=== PATIENT | male | born 1960 | race Caucasian/White ===

== ENCOUNTER 2023-02-14 15:40 | Outpatient (AMB) | payer OTHER, SELFPAY ==
[2023-02-14 16:28] VITALS: BP 160/94; PULSE 74; O2SAT 94; BMI 61.9
--- NOTE | 2023-02-14 16:28 | MHC.PC.OV ---
Vital Signs 02/14/23 16:28 Height 5 ft 10 in Weight 431 lb 8 oz BMI 61.9 BP 160/94 H Blood Pressure Location Lt brachial Position Sitting Pulse 74 Pulse Source Pulse Oximeter Pulse Oximetry (%) 94 Oxygen Delivery Method Room Air Intake Visit Reasons: Annual PE Allergies No Known Allergies Allergy (Verified 02/14/23 16:30) Medication List - Last Reconciled 02/14/23 by EMILI Ceja No Known Home Meds Tobacco use date assessed: 02/14/23 Dental Screening Dental Screen Date: 02/14/23 Did you have a dental visit in the last 12 months?: Yes Did you have a dental problem in the last 6 months where you did not have access to dental care?: No Was dental information given to patient?: Patient has dentist HPI Annual PE HPI Details New pt is here for a PE. Will order labs. Due for colon screen, will refer to GI. Due for PSA, will order. Denies dribbling with urination, weak stream, and incomplete bladder emptying. Pt's blood pressure is elevated. Will start lisinopril 5mg. Denies chest pain, shortness of breath, headache, dizziness, and blurred vision. [facility] Social History Housing: House Patient Tobacco Use Status: Never used Tobacco e-Cigarette/Vaping Use: Never Used Second Hand Smoke Exposure: No service: No Current occupational status: retired and disabled Cognitive needs: No Hearing needs: No Vision needs: No Questionnaire PHQ-9 Over the last 2 weeks, how often have you been bothered by any of the following problems? 1. Little interest or pleasure in doing things: several days 2. Feeling down, depressed, or hopeless: not at all 3. Trouble falling or staying asleep, or sleeping too much: not at all 4. Feeling tired or having little energy: not at all 5. Poor appetite or overeating: not at all 6. Feeling bad about yourself - or that you are a failure or have let yourself or your family down: not at all 7. Trouble concentrating on things, such as reading the newspaper or watching television: not at all 8. Moving or speaking so slowly that other people could have noticed. Or the opposite - being so fidgety or restless that you have been moving around a lot more than usual: not at all 9. Thoughts that you would be better off or of hurting yourself in some way: not at all Total score: 1 Source: Developed by Drs. Jarvis Deleon, Shereen Xie, Mehul Bradley and colleagues, with an educational kim from [employer]. Thrive Questionnaire Date Thrive assessed: 02/14/23 I am a: Patient What is your living situation today?: I have a steady place to live Within the past 12 months, did the food you bought not last and you didn't have the money to get more?: Never true Within the past 12 months, did you worry whether your food would run out before you got money to buy more?: Never true Do you have trouble paying for medicines?: No Do you have trouble getting transportation to medical appointments?: No Do you have trouble paying your heating and electricity bill?: No Do you have trouble taking care of your child, family member or friend?: No Do you have trouble with day-to-day activities such as bathing, preparing meals, shopping, managing finances, etc.?: No Are you currently unemployed and looking for a job?: No Are you interested in more education?: No AUDIT C Alcohol Use Questionnaire (AUDIT-C) 1. How often do you have a drink containing alcohol?: 2-4 times a month 2. How many drinks containing alcohol do you have on a typical day when you are drinking?: 3 or 4 3. How often do you have six or more drinks on one occasion?: Never Total Score: 3 BRITNI-7 AMB Questionnaire BRITNI-7 Date BRITNI - 7 assessed: 02/14/23 Feeling nervous, anxious, or on edge: 0 = Not at all Not being able to stop or control worryin = Not at all Worrying too much about different things: 0 = Not at all Trouble relaxin = Not at all Being so restless that it is hard to sit still: 0 = Not at all Becoming easily annoyed or irritable: 0 = Not at all Feeling afraid as if something awful might happen: 0 = Not at all Total BRITNI-7 score (0-4 normal; 5-9 mild; 10-14 moderate; 15-21 severe): 0 Source: Developed by Shereen Chaidez Kurt Kroenke and colleagues, with an educational kim from [employer]. Review of Systems Const Denies chills and Denies fever(s) Eyes Denies blurry vision ENT Denies vertigo, Denies dizziness and Denies sore throat Card Denies chest pain at rest, Denies chest pain with activity, Denies diaphoresis, Denies dyspnea and Denies dyspnea on exertion Resp Denies cough, Denies dyspnea, Denies dyspnea on exertion and Denies wheezing GI Denies abdominal pain, Denies melena, Denies hematochezia, Denies constipation, Denies diarrhea and Denies loose stools Denies hematuria Musc Denies numbness and Denies tingling Skin/Breast Denies lesions Neuro Denies vertigo, Denies dizziness, Denies numbness and Denies tingling Psych Denies anxiety, Denies depression, Denies homicidal ideation, Denies suicidal ideation and Denies other (substance abuse) Aller/Immun Denies wheezing Physical exam (Primary Care) Vital Signs: Last Vital Signs Pulse 74 02/14/23 16:28 BP 160/94 H 02/14/23 16:28 Pulse Ox 94 02/14/23 16:28 Oxygen Delivery Method Room Air 02/14/23 16:28 BMI result Body Mass Index 61.9 Tobacco/Smoking Status: Tobacco use Status Tobacco use date assessed 02/14/23 02/14/23 16:34 Patient Tobacco Use Status Never used Tobacco 02/14/23 16:34 e-Cigarette/Vaping Use Never Used 02/14/23 16:34 PHQ-9: PHQ-9 Score PHQ-9: Total score 1 02/14/23 17:24 Thrive Assessment: Date of Thrive Assessment Date Thrive assessed 02/14/23 02/14/23 17:24 Const General: cooperative Nutritional Appearance: obese morbidly obese Orientation/consciousness: patient oriented x3 HENMT Head: Yes normal to inspection, Yes normocephalic and Yes atraumatic Ears: TM's normal bilaterally Eyes General: appearance normal, both eyes and all related structures Alignment and Position: alignment normal and position normal Neck Neck: Yes normal visual inspection and Yes no lymphadenopathy Thyroid: Thyroid normal Resp Effort & Inspection: normal respiratory effort Auscultation: clear to auscultation bilaterally Cardio Rate: regular rate Rhythm: regular rhythm Heart sounds: S1 normal heart sound present, S2 normal heart sound present and no murmurs GI Palpation (GI): Soft to palpation and nontender Auscultation: normal bowel sounds Male General Exam: Yes normal external exam Penis: normal penis Scrotum: scrotum normal, testes descended bilaterally and no inguinal hernias Testes: no testicular mass Skin Rashes: no rashes Neuro General: patient oriented x3, moves all extremities, no focal motor deficits and deep tendon reflexes 2+ bilaterally Romberg Test: Negative Extrem Other: brawny edema to BLE, right>left Right lower extremity: edema Details: pitting and 1+ Left lower extremity: edema Details: pitting and 1+ Psych Appearance: grossly normal Mental Status: mental status grossly normal Speech and movement: Normal speech and movement present Affect: normal affect Attitude: cooperative Thought process: Normal thought process present Thought content: Normal thought content present Insight: Good insight present (Psych) Judgement: Good judgement present (Psych) Assessment and Plan Assessment & Plan (1) Physical exam: Code(s): Z00.00 - Encounter for general adult medical examination without abnormal findings Plan: Labs ordered (2) Screening for colon cancer: Code(s): Z12.11 - Encounter for screening for malignant neoplasm of colon (3) Screening for prostate cancer: Code(s): Z12.5 - Encounter for screening for malignant neoplasm of prostate Plan The patient agreed to the use of a medical assistant dermatology for this encounter. Scribed for GINGER Middleton-CARROL by Lidya Arnett medical assistant dermatology, on 02/14/2023 at 16:35 EST. Orders: Orders Comprehensive [place]. Panel Fast Today Z00.00 - Encounter for general adult medical examination without abnormal findings Lipid Panel Today Z00.00 - Encounter for general adult medical examination without abnormal findings TSH reflex Free T4 Today Z00.00 - Encounter for general adult medical examination without abnormal findings Complete Blood Count Auto Diff Today Z00.00 - Encounter for general adult medical examination without abnormal findings UA CC w/rflx Micro + Cult Today Z00.00 - Encounter for general adult medical examination without abnormal findings Prostate Specific Antigen Scr Today Z12.5 - Encounter for screening for malignant neoplasm of prostate Referrals Gastroenterology Referral Z12.11 - Encounter for screening for malignant neoplasm of colon Medications: New lisinopril 5 mg PO DAILY 30 tabs 3RF Coding Level of Care Code New Pt Prev Care 40-64y(56896) Diagnoses Physical exam Z00.00 Screening for colon cancer Z12.11 Screening for prostate cancer Z12.5
== END 2023-02-14 17:24 | disposition home or self-care (01) ==
PROVIDERS: Visit Provider Nurse Practitioner Family
DX: Z00.00 Encounter for general adult medical examination without abnormal findings (principal); Z12.11 Encounter for screening for malignant neoplasm of colon; Z12.5 Encounter for screening for malignant neoplasm of prostate
CPT/HCPCS: 99386

== ENCOUNTER 2023-02-28 09:28 | Outpatient (REF) | payer OTHER, SELFPAY ==
[2023-02-28 11:10] LABS: MANUAL DIFF FLAG NO
[2023-02-28 11:16] LABS: Appearance Urine Clear; Color Urine Yellow; Glucose Urine UA Negative (Negative); Leukocyte Esterase Urine Negative (Negative); Nitrite Urine Negative (Negative); Urine Blood Negative (Negative); Urine Ketones Negative (Negative); Urine Protein Negative (Neg-Trace)
[2023-02-28 11:39] LABS: Basophils Absolute Auto 0.1 X10*3/uL (0.0-0.2); Basophils Percent Auto 0.6 % (0-2); Eosinophils Absolute Auto 0.3 X10*3/uL (0.0-0.4); Eosinophils Percent Auto 3.2 % (0-4); Hematocrit 49.5 % (42.0-52.0); Hemoglobin 15.7 g/dl (14.0-18.0); Imm Gran Abs Auto 0.08 X10*3/uL (0.00-0.03); Imm Gran Pct Auto 0.8 % (0.0-0.4); Lymphocytes Absolute Auto 3.4 X10*3/uL (1.2-4.9); Lymphocytes Percent Auto 36.2 % (20-40); Mean Corpuscular HGB Conc 31.7 g/dl (31.0-36.0); Mean Corpuscular Hemoglobin 30.7 pg (27.0-33.0); Mean Corpuscular Volume 96.9 fL (80.0-98.0); Mean Platelet Volume 10.1 fL (9.4-12.4); Monocytes Absolute Auto 0.7 X10*3/uL (0.1-1.2); Monocytes Percent Auto 7.5 % (2-11); Neutrophils Absolute Auto 4.9 x10*3/uL (2.0-8.3); Neutrophils Percent Auto 51.7 % (45-73); Platelet Count 333 X10*3/uL (160-400); Red Blood Count 5.11 X10*6/uL (4.60-5.80); White Blood Count 9.5 X10*3/uL (4.8-10.8)
[2023-02-28 12:12] LABS: Alanine Aminotransferase 19 U/L (0-40); Albumin Level 3.6 g/dL (3.5-5.0); Alkaline Phosphatase 47 U/L (39-117); Anion Gap 10 (12-20); Aspartate Amino Transferase 17 U/L (5-37); Bilirubin Total 0.5 mg/dL (0.0-1.0); Blood Urea Nitrogen 15 mg/dL (9-16); Calcium 9.3 mg/dL (8.4-10.2); Carbon Dioxide 30 mmol/L (22-29); Chloride 104 mmol/L (96-108); Cholesterol 280 mg/dL; Estimated Glomerular Filt Rate > 60; Glucose Fasting 104 mg/dL (60-99); HDL Cholesterol 34 mg/dL; LDL Cholesterol Calculated 223 mg/dl; Potassium 4.8 mmol/L (3.3-5.1); Sodium 139 mmol/L (135-145); Total Protein 7.8 g/dL (6.5-8.0); Triglycerides 119 mg/dL
[2023-02-28 12:30] LABS: TSH reflex Free T4 1.73 uIU/mL (0.32-4.0)
[2023-02-28 12:33] LABS: Prostate Specific Antigen Scr 0.19 ng/mL (<0.05-4.0)
== END 2023-02-28 09:29 | disposition home or self-care (01) ==
LOC: HO.HMGCLDS 09:28
PROVIDERS: PCP Nurse Practitioner Family; Visit Provider Nurse Practitioner Family
DX: Z00.00 Encounter for general adult medical examination without abnormal findings (principal); E78.5 Hyperlipidemia, unspecified; Z12.5 Encounter for screening for malignant neoplasm of prostate
CPT/HCPCS: 36415; 80053; 80061; 81003; 84153; 84443; 85025

== ENCOUNTER → 2023-04-25 07:49 | Outpatient (BNVA) | payer OTHER, SELFPAY | PROVIDERS: PCP Nurse Practitioner Family; Visit Provider Physician Assistant ==

== ENCOUNTER 2023-08-16 14:52 | Outpatient (AMB) | payer OTHER, SELFPAY ==
--- NOTE | 2023-08-16 14:54 | A.OFFPC_ITS ---
Vital Signs 08/16/23 14:58 Weight 424 lb BP 122/82 Blood Pressure Location Rt brachial Position Sitting Pulse 81 Pulse Source Pulse Oximeter Pulse Oximetry (%) 98 Oxygen Delivery Method Room Air Intake Visit Reasons: 5 month f/u BP Intake Note: Patient here for HTN F/U. Allergies Kdziztd-JOW-ZkA Reductase Inhibitor Adverse Reaction (Intermediate, Verified 08/16/23 15:11) Joint Pain Medication List - Last Reconciled 08/16/23 [facility] ezet[facility] 10 mg PO DAILY lisinopril 5 mg PO DAILY Tobacco use date assessed: 08/16/23 Dental Screening Dental Screen Date: 08/16/23 Did you have a dental visit in the last 12 months?: Yes Did you have a dental problem in the last 6 months where you did not have access to dental care?: No Was dental information given to patient?: Patient has dentist HPI 5 month f/u BP HPI Details HTN: Blood pressure is stable, managed with lisinopril 5mg. Pt reports that his blood pressure at home has been in the 120s/80s. Denies chest pain, shortness of breath, headache, dizziness, and blurred vision. Dyslipidemia: Pt is currently taking zetia 10mg every other day. Will continue this. Pt reports a dry macular lesion to his left upper forehead. Will refer to derm. ENCOURAGED PT TO GET LABS DRAWN. [facility] Medical History Knee arthropathy Social History Housing: House Patient Tobacco Use Status: Never used Tobacco e-Cigarette/Vaping Use: Never Used Second Hand Smoke Exposure: No service: No Current occupational status: retired and disabled Cognitive needs: No Hearing needs: No Vision needs: No Questionnaire Thrive Questionnaire Date Thrive assessed: 02/14/23 BRITNI-7 AMB Questionnaire BRITNI-7 Date BRITNI - 7 assessed: 02/14/23 Source: Developed by Drs. Jarvis Deleon, Shereen Xie, Mehul Bradley and colleagues, with an educational kim from [employer]. Review of Systems Const Reports as per HPI Physical exam (Primary Care) Vital Signs: Last Vital Signs Pulse 81 08/16/23 14:58 BP 122/82 08/16/23 14:58 Pulse Ox 98 08/16/23 14:58 Oxygen Delivery Method Room Air 08/16/23 14:58 Tobacco/Smoking Status: Tobacco use Status Tobacco use date assessed 08/16/23 08/16/23 15:02 Patient Tobacco Use Status Never used Tobacco 08/16/23 14:54 e-Cigarette/Vaping Use Never Used 08/16/23 14:54 Thrive Assessment: Date of Thrive Assessment Date Thrive assessed 02/14/23 08/16/23 14:54 Const General: cooperative Nutritional Appearance: obese morbidly obese Orientation/consciousness: patient oriented x3 Resp Effort & Inspection: normal respiratory effort Auscultation: clear to auscultation bilaterally Cardio Rate: regular rate Rhythm: regular rhythm Heart sounds: S1 normal heart sound present and S2 normal heart sound present Skin Other: dry more macular lesion noted to upper left forehead Neuro General: patient oriented x3 Psych Appearance: grossly normal Mental Status: mental status grossly normal Speech and movement: Normal speech and movement present Affect: normal affect Attitude: cooperative Thought process: Normal thought process present Thought content: Normal thought content present Insight: Good insight present (Psych) Judgement: Good judgement present (Psych) Assessment and Plan Assessment & Plan (1) Dyslipidemia: Code(s): E78.5 - Hyperlipidemia, unspecified Plan: cont ezetimibe every other day (2) HTN (hypertension): Code(s): I10 - Essential (primary) hypertension Plan: Continue lisinopril, labs (3) Facial lesion: Code(s): L98.9 - Disorder of the skin and subcutaneous tissue, unspecified Plan: Referred to derm Plan The patient agreed to the use of a medical transcriptionist for this encounter. Scribed for MIGUEL Middleton by Lidya Arnett medical transcriptionist, on 08/16/2023 at 15:10 EST. Orders: Referrals Dermatology Referral L98.9 - Disorder of the skin and subcutaneous tissue, unspecified Coding Level of Care Code Est Pt Level 3 (22151) Diagnoses Dyslipidemia E78.5 HTN (hypertension) I10 Facial lesion L98.9
[2023-08-16 14:58] VITALS: BP 122/82; PULSE 81; O2SAT 98
== END 2023-08-16 15:23 | disposition home or self-care (01) ==
PROVIDERS: PCP Nurse Practitioner Family; Visit Provider Nurse Practitioner Family
DX: E78.5 Hyperlipidemia, unspecified (principal); I10 Essential (primary) hypertension; L98.9 Disorder of the skin and subcutaneous tissue, unspecified
CPT/HCPCS: 99213

== ENCOUNTER 2023-08-31 09:37 | Outpatient (REF) | payer OTHER, SELFPAY ==
[2023-08-31 12:37] LABS: Alanine Aminotransferase 19 U/L (0-40); Albumin Level 3.7 g/dL (3.5-5.0); Alkaline Phosphatase 42 U/L (39-117); Anion Gap 14 (12-20); Aspartate Amino Transferase 16 U/L (5-37); Bilirubin Total 0.7 mg/dL (0.0-1.0); Blood Urea Nitrogen 17 mg/dL (9-16); Calcium 9.6 mg/dL (8.4-10.2); Carbon Dioxide 27 mmol/L (22-29); Chloride 102 mmol/L (96-108); Cholesterol 257 mg/dL (<200); Estimated Glomerular Filt Rate > 60; Glucose Fasting 106 mg/dL (60-99); HDL Cholesterol 37 mg/dL (>40); LDL Cholesterol Calculated 191 mg/dL (<100); Potassium 4.4 mmol/L (3.3-5.1); Sodium 139 mmol/L (135-145); Triglycerides 148 mg/dL (<150)
== END 2023-08-31 09:38 | disposition home or self-care (01) ==
LOC: HO.HMGCLDS 09:37
PROVIDERS: PCP Nurse Practitioner Family; Visit Provider Nurse Practitioner Family
DX: E78.5 Hyperlipidemia, unspecified (principal)
CPT/HCPCS: 36415; 80053; 80061

== ENCOUNTER 2023-11-21 06:38 | Outpatient (REF) | payer OTHER, SELFPAY ==
--- NOTE | ~2023-11-21 | XR_ITS ---
EXAMINATION: XR KNEE, RIGHT CLINICAL INFORMATION: Pain in right knee. COMPARISON: None available. TECHNIQUE: Three views of the right knee. FINDINGS: Marked narrowing of the medial compartment with medial marginal osteophytes. Small joint effusion. Please note that technologist placed a radiopaque arrow marker over superior patellar region, obscuring some visualization, and this lateral view should be repeated at no charge to the patient. When the patient returns for an additional view, an addendum will be dictated. Degenerative changes with hypertrophic change of the patellofemoral joint. XR/XR knee RT 3V IMPRESSION: 1. Marked degenerative changes medial compartment. 2. Small joint effusion. 3. Please note the technologist placed a radiopaque arrow marker over superior patellar region, obscuring some visualization, and this lateral view should be repeated at no charge to the patient. When the patient returns for an additional view, an addendum will be dictated.
== END 2023-11-21 06:39 | disposition home or self-care (01) ==
LOC: HO.HOSX 06:38
PROVIDERS: Visit Provider Orthopaedic Surgery
DX: M17.11 Unilateral primary osteoarthritis, right knee (principal)
CPT/HCPCS: 73562; 99212

== ENCOUNTER 2023-11-21 09:00 | Outpatient (AMB) | payer OTHER, SELFPAY ==
[2023-11-21 09:05] VITALS: BMI 60.8
--- NOTE | 2023-11-21 09:05 | MHC.OFFVIS ---
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 Madera for Right knee pain. The patient did undergo left knee arthroscopic surgery approximately 5 years ago. He reports minimal discomfort in his left knee. He describes his right knee pain as sharp in nature. Most of the pain is along the medial aspect of his knee. He has had cortisone injections in the past which gave him minimal relief. He has not had a viscosupplementation injection. Has taken Tylenol and ibuprofen which gave him minimal relief. He has also done physical therapy exercises which aggravated his pain. Allergies Nydvpan-XYO-KvE Reductase Inhibitor Adverse Reaction (Intermediate, Verified 11/21/23 09:18) Joint Pain Medication List - Last Reconciled 11/21/23 by Kole Madera MD ezetimibe 10 mg PO DAILY fluvastatin 20 mg PO QPM lisinopril 5 mg PO DAILY ON LICENSE OF [facility] Medical History Knee arthropathy Social History Housing: House Patient Tobacco Use Status: Never used Tobacco e-Cigarette/Vaping Use: Never Used Second Hand Smoke Exposure: No service: No Current occupational status: retired and disabled Cognitive needs: No Hearing needs: No Vision needs: No Physical Exam Vital Signs: BMI result Body Mass Index 60.8 Const Other: Well-nourished well-developed very friendly male awake alert and oriented x3 in no acute distress Extrem Other: Bilateral lower extremity examination shows good capillary refill, no skin lesions noted, normal sensation light touch Right knee examination shows a minimal effusion, mild crepitus with range of motion, tenderness along his medial joint line, positive Franci's test, no instability Assessment & Plan Assessment & Plan (1) Osteoarthritis of right knee: Code(s): M17.11 - Unilateral primary osteoarthritis, right knee Plan Mr. Saucedo presents with right knee pain and mechanical symptoms due to osteoarthritis as well as possible tearing of his medial meniscus. I had a lengthy discussion with the patient regarding the treatment options. The patient wishes to hold off on surgery for as long as possible. I agree with this plan. He has not gotten good relief from cortisone injections in the past. Thus, I will see whether or not his insurance company will cover a viscosupplementation injection. I will see him back once the injection is available. He will contact me prior to that time should any questions or concerns arise. Feel free to call me at any time should questions regarding his orthopedic management arise. I spent 22 minutes in reviewing the patient's records and imaging studies, seeing the patient and documenting in the medical record. Orders: Orders XR knee RT 3V Today M25.561 - Pain in right knee Coding Level of Care Code Est Pt Level 2 (05404) Diagnoses Osteoarthritis of right knee M17.11
== END 2023-11-21 09:37 | disposition home or self-care (01) ==
PROVIDERS: PCP Nurse Practitioner Family; Visit Provider Orthopaedic Surgery
DX: M17.11 Unilateral primary osteoarthritis, right knee (principal)
CPT/HCPCS: 99213

== ENCOUNTER 2023-12-13 08:24 | Outpatient (AMB) | payer OTHER, SELFPAY ==
[2023-12-13 08:31] VITALS: BMI 60.8
--- NOTE | 2023-12-13 08:31 | A.OFFVIS_ITS ---
Vital Signs 12/13/23 08:31 Height 5 ft 10 in Weight 424 lb BMI 60.8 Intake Visit Reasons: OV- Right knee durolane gel injection Intake Note: Mr. Saucedo presents with progressively worsening right knee pain. He describes his pain as sharp in nature. His pain has gotten worse over the last 6 months in spite of continued non operative treatments. He has had cortisone injections in the past which gave him minimal relief. He wishes to hold off on surgery for as long as possible. He has tried Tylenol and anti-inflammatory medicines which gave him minimal relief. He has also done physical therapy exercises which aggravated his pain. Allergies Yiyejcv-HOW-AiY Reductase Inhibitor Adverse Reaction (Intermediate, Verified 0 12/13/23 08:36) Joint Pain Medication List - Last Reconciled 12/14/23 by Kole Madera MD ezetimibe 10 mg PO DAILY fluvastatin 20 mg PO QPM lisinopril 5 mg PO DAILY PFSH Medical History Knee arthropathy Social History Housing: House Patient Tobacco Use Status: Never used Tobacco e-Cigarette/Vaping Use: Never Used Second Hand Smoke Exposure: No service: No Current occupational status: retired and disabled Cognitive needs: No Hearing needs: No Vision needs: No Physical Exam Vital Signs: BMI result Body Mass Index 60.8 Const Other: Well-nourished well-developed very friendly female awake alert and oriented x3 in no acute distress Extrem Other: Bilateral lower extremity examination shows good capillary refill, no skin lesions noted, normal sensation light touch Right knee examination shows a minimal effusion, palpable crepitus with range of motion, pain with range of motion, no instability Office Procedures Joint Injection/Drain Joint Injection/Drain Primary Site: right knee Prep: site was prepped using aseptic technique Injected: 60 mg of (Durolane viscosupplementation) and 1% plain lidocaine Procedure: The patient tolerated the procedure well Coding 16140 - Large joint Procedure code (CPT) selection complete Results Reviewed Results Reviewed: X-rays of the patient's right knee show joint space narrowing, subchondral sclerosis, no acute bony abnormalities Assessment & Plan Assessment & Plan (1) Osteoarthritis of right knee: Code(s): M17.11 - Unilateral primary osteoarthritis, right knee Category: Medical Plan Mr. Saucedo presents with right knee pain due to degenerative joint disease. I had a lengthy discussion with the patient regarding the treatment options. He wishes to hold off on surgery for as long as possible. I agree with this plan. The risks and benefits of a Durolane viscosupplementation injection were discussed at length with the patient. The patient wished to proceed. He to lerated the injection well. Will continue with his home exercise program. He will follow up with me on an as-needed basis should his symptoms not plateau at an unacceptable level over the next few months. Feel free to call me at any time should questions regarding his orthopedic management arise. I spent 20 minutes in reviewing the patient's records and imaging studies, seeing the patient and documenting in the medical record. Orders: Orders AMB Joint Injection/Aspiration 12/13/23 M17.11 - Unilateral primary osteoarthritis, right knee Coding Level of Care Code Est Pt Level 3 (81532) Diagnoses Osteoarthritis of right knee M17.11 CPT Codes Coding - 49711 Large joint: 75770 - Large joint ([id number])
== END 2023-12-13 08:55 | disposition home or self-care (01) ==
PROVIDERS: PCP Nurse Practitioner Family; Visit Provider Orthopaedic Surgery
DX: M17.11 Unilateral primary osteoarthritis, right knee (principal)
CPT/HCPCS: 20610; 99213

== ENCOUNTER → 2023-12-13 08:24 | Outpatient (BNVA) | payer OTHER, SELFPAY | PROVIDERS: PCP Nurse Practitioner Family; Visit Provider Orthopaedic Surgery | DX: M17.11 Unilateral primary osteoarthritis, right knee (principal) | CPT/HCPCS: 20610; 99212; J7318 ==

== ENCOUNTER 2024-02-14 09:15 | Outpatient (REF) | payer OTHER, SELFPAY ==
[2024-02-14 14:05] LABS: Alanine Aminotransferase 21 U/L (0-40); Albumin Level 3.7 g/dL (3.5-5.0); Alkaline Phosphatase 41 U/L (39-117); Anion Gap 13 (12-20); Aspartate Amino Transferase 20 U/L (5-37); Bilirubin Total 0.6 mg/dL (0.0-1.0); Blood Urea Nitrogen 20 mg/dL (9-16); Carbon Dioxide 28 mmol/L (22-29); Chloride 103 mmol/L (96-108); Cholesterol 258 mg/dL (<200); Estimated Glomerular Filt Rate > 60; Glucose Fasting 111 mg/dL (60-99); HDL Cholesterol 34 mg/dL (>40); LDL Cholesterol Calculated 199 mg/dL (<100); Potassium 4.8 mmol/L (3.3-5.1); Sodium 139 mmol/L (135-145); Total Protein 7.7 g/dL (6.5-8.0); Triglycerides 125 mg/dL (<150)
== END 2024-02-14 09:16 | disposition home or self-care (01) ==
LOC: HO.HMGCLDS 09:15
PROVIDERS: PCP Nurse Practitioner Family; Visit Provider Nurse Practitioner Family
DX: E78.5 Hyperlipidemia, unspecified (principal)
CPT/HCPCS: 36415; 80053; 80061

== ENCOUNTER 2024-02-18 13:49 | Outpatient (AMB) | payer OTHER, SELFPAY ==
--- NOTE | 2024-02-18 13:57 | MHC.PC.OV ---
Vital Signs 02/18/24 14:00 Height 5 ft 10 in Weight 432 lb BMI 62.0 BP 110/80 Blood Pressure Location Lt brachial Position Sitting Pulse 74 Pulse Source Pulse Oximeter Pulse Oximetry (%) 94 Oxygen Delivery Method Room Air Intake Visit Reasons: Annual PE Intake Note: Patient here for physical exam. Colon: has not had one done yet. Allergies Yorfuqm-ANN-FtB Reductase Inhibitor Adverse Reaction (Intermediate, Verified 02/18/24 14:12) Joint Pain Medication List - Last Reconciled 02/18/24 by MIGUEL Ceja fluvastatin 20 mg PO QPM lisinopril 5 mg PO DAILY Tobacco use date assessed: 08/16/23 Dental Screening Dental Screen Date: 08/16/23 HPI Annual PE HPI Details here for a PE. Colon screen scheduled for June. Denies any urinary frequency, urgency, or nocturia. Mobidly obese: had a sleep study previously, refuses cpap. Pt was in the obesity clinic, does not want to go back. [facility] Medical History HTN (hypertension) Knee arthropathy Social History Housing: House Patient Tobacco Use Status: Never used Tobacco e-Cigarette/Vaping Use: Never Used Second Hand Smoke Exposure: No service: No Current occupational status: retired and disabled Cognitive needs: No Hearing needs: No Vision needs: No Questionnaire PHQ-9 Over the last 2 weeks, how often have you been bothered by any of the following problems? 1. Little interest or pleasure in doing things: more than half the days 2. Feeling down, depressed, or hopeless: not at all 3. Trouble falling or staying asleep, or sleeping too much: not at all 4. Feeling tired or having little energy: not at all 5. Poor appetite or overeating: not at all 6. Feeling bad about yourself - or that you are a failure or have let yourself or your family down: not at all 7. Trouble concentrating on things, such as reading the newspaper or watching television: not at all 8. Moving or speaking so slowly that other people could have noticed. Or the opposite - being so fidgety or restless that you have been moving around a lot more than usual: not at all 9. Thoughts that you would be better off or of hurting yourself in some way: not at all Total score: 2 Depression Screening Interpretation: Negative Depression Screening Done: Yes 55926 - PHQ-9 Billing: Yes Source: Developed by Drs. Jarvis Deleon, Shereen Xie, Mehul Bradley and colleagues, with an educational kim from [email or web address]. Thrive Questionnaire Date Thrive assessed: 02/18/24 I am a: Parent/Caregiver What is your living situation today?: I have a steady place to live Within the past 12 months, did the food you bought not last and you didn't have the money to get more?: Never true Within the past 12 months, did you worry whether your food would run out before you got money to buy more?: Never true Do you have trouble paying for medicines?: No Do you have trouble getting transportation to medical appointments?: No Do you have trouble paying your heating and electricity bill?: No Do you have trouble taking care of your child, family member or friend?: No Do you have trouble with day-to-day activities such as bathing, preparing meals, shopping, managing finances, etc.?: No Are you currently unemployed and looking for a job?: No Are you interested in more education?: No Please select the resources that you would like help with: Housing/Long-Term Currently or been in a relationship where the following occur: I choose not to answer THRIVE Score: 0 AUDIT C Alcohol Use Questionnaire (AUDIT-C) 1. How often do you have a drink containing alcohol?: Monthly or less 2. How many drinks containing alcohol do you have on a typical day when you are drinking?: 3 or 4 3. How often do you have six or more drinks on one occasion?: Never Total Score: 2 BRITNI-7 AMB Questionnaire BRITNI-7 Date BRITNI - 7 assessed: 02/18/24 Source: Developed by Drs. Jarvis Deleon, Shereen Xie, Mehul Bradley and colleagues, with an educational kim from [email or web address]. BRITNI-7 Assessment Billing BRITNI-7 Assessment Tool: pt declined-do not bill Review of Systems Const Denies chills and Denies fever(s) Eyes Denies blurry vision ENT Denies vertigo, Denies dizziness and Denies sore throat Card Denies chest pain at rest, Denies chest pain with activity, Denies diaphoresis, Denies dyspnea and Denies dyspnea on exertion Resp Denies cough, Denies dyspnea, Denies dyspnea on exertion and Denies wheezing GI Denies abdominal pain, Denies melena, Denies hematochezia, Denies constipation, Denies diarrhea and Denies loose stools Denies hematuria Musc Denies numbness and Denies tingling Skin/Breast Denies lesions Neuro Denies vertigo, Denies dizziness, Denies numbness and Denies tingling Psych Denies anxiety, Denies depression, Denies homicidal ideation, Denies suicidal ideation and Denies other (substance abuse) Aller/Immun Denies wheezing Physical exam (Primary Care) Vital Signs: Last Vital Signs Pulse 74 02/18/24 14:00 BP 110/80 02/18/24 14:00 Pulse Ox 94 02/18/24 14:00 Oxygen Delivery Method Room Air 02/18/24 14:00 BMI result Body Mass Index 62.0 Tobacco/Smoking Status: Tobacco use Status Tobacco use date assessed 08/16/23 02/18/24 13:59 Patient Tobacco Use Status Never used Tobacco 02/18/24 13:59 e-Cigarette/Vaping Use Never Used 02/18/24 13:59 PHQ-9: PHQ-9 Score PHQ-9: Total score 2 02/18/24 13:59 Depression Screening Interpretation: Negative Thrive Assessment: Date of Thrive Assessment Date Thrive assessed 02/18/24 02/18/24 13:59 Currently or been in a relationship where the following occur: I choose not to answer Const General: cooperative Nutritional Appearance: well nourished and obese morbidly obese Orientation/consciousness: patient oriented x3 HENMT Head: Yes normal to inspection, Yes normocephalic and Yes atraumatic Ears: TM normal on the right and TM normal on the left Eyes General: appearance normal, both eyes and all related structures Alignment and Position: alignment normal and position normal Neck Neck: Yes normal visual inspection and Yes no lymphadenopathy Resp Effort & Inspection: normal respiratory effort Auscultation: clear to auscultation bilaterally Cardio Rate: regular rate Rhythm: regular rhythm Heart sounds: S1 normal heart sound present, S2 normal heart sound present and no murmurs GI Palpation (GI): Soft to palpation and nontender Auscultation: normal bowel sounds Male General Exam: Yes normal external exam Penis: normal penis Scrotum: scrotum normal, testes descended bilaterally and no inguinal hernias Testes: no testicular mass Skin Other: skin discoloration to BLE, brawny edema noted to BLE (+1). Several skin tags to neck. faint macular erythema under pannus. Rashes: no rashes Neuro General: patient oriented x3, moves all extremities, no focal motor deficits and deep tendon reflexes 2+ bilaterally Romberg Test: Negative Extrem Right lower extremity: no edema Left lower extremity: no edema Psych Affect: normal affect Attitude: cooperative Thought process: Normal thought process present Assessment and Plan Assessment & Plan (1) Encounter for routine adult physical exam with abnormal findings: Code(s): Z00. - Encounter for general adult medical examination with abnormal findings (2) Screening for prostate cancer: Code(s): Z12.5 - Encounter for screening for malignant neoplasm of prostate (3) Obesity: Code(s): E66.9 - Obesity, unspecified (4) Dyslipidemia: Code(s): E78.5 - Hyperlipidemia, unspecified Plan: increasing statin Orders: Orders Complete Blood Count Auto Diff Today Z00. - Encounter for general adult medical examination with abnormal findings Comprehensive [place]. Panel Fast Today Z00. - Encounter for general adult medical examination with abnormal findings TSH reflex Free T4 Today Z00.01 - Encounter for general adult medical examination with abnormal findings UA CC w/rflx Micro + Cult Today Z00.01 - Encounter for general adult medical examination with abnormal findings Lipid Panel Today Z00.01 - Encounter for general adult medical examination with abnormal findings Prostate Specific Antigen Scr Today Z12.5 - Encounter for screening for malignant neoplasm of prostate Medications: Changed From fluvastatin 20 mg PO QPM 90 caps 0RF To fluvastatin 40 mg PO QPM 90 caps 0RF Coding Level of Care Code Est Pt Prev Care 40-64y(74617) Diagnoses Encounter for routine adult physical exam with abnormal findings Z00. Screening for prostate cancer Z12.5 Obesity E66.9 Dyslipidemia E78.5
[2024-02-18 14:00] VITALS: BP 110/80; PULSE 74; O2SAT 94; BMI 62.0
== END 2024-02-18 14:26 | disposition home or self-care (01) ==
PROVIDERS: PCP Nurse Practitioner Family; Visit Provider Nurse Practitioner Family
DX: Z00.00 Encounter for general adult medical examination without abnormal findings (principal); Z12.5 Encounter for screening for malignant neoplasm of prostate; E66.9 Obesity, unspecified; Z68.44 Body mass index [BMI] 60.0-69.9, adult; E78.5 Hyperlipidemia, unspecified
CPT/HCPCS: 99396

== ENCOUNTER 2024-03-18 08:29 | Outpatient (AMB) | payer OTHER, SELFPAY ==
--- NOTE | 2024-03-18 08:38 | MHC.OFFVIS ---
Vital Signs 03/18/24 08:40 Height 5 ft 10 in Weight 432 lb BMI 62.0 Intake Visit Reasons: OV-Right knee follow up Intake Note: Andrea is a 63 year old male who presents with complaints of progressively worsening right knee pain and giving way. The patient did undergo left knee arthroscopic surgery several years ago. He reports minimal discomfort in his left knee. He describes his right knee pain as sharp in nature. Most of the pain is along the medial aspect of his knee. His right knee pain has gotten worse over the last year in spite of continued non operative treatments. He has failed the last 3 months of conservative treatment. He has had cortisone injections which lasted 2 days. He also had a viscosupplementation injection which lasted 2 weeks. Has tried Tylenol and anti-inflammatory medicines which gave him minimal relief. He states that his right knee will give out several times per day. Allergies Fytevbr-DZZ-FlF Reductase Inhibitor Adverse Reaction (Intermediate, Verified 03/18/24 08:42) Joint Pain PFSH Medical History HTN (hypertension) Knee arthropathy Social History Housing: House Patient Tobacco Use Status: Never used Tobacco e-Cigarette/Vaping Use: Never Used Second Hand Smoke Exposure: No service: No Current occupational status: retired and disabled Cognitive needs: No Hearing needs: No Vision needs: No Physical Exam Vital Signs: BMI result Body Mass Index 62.0 Const Other: Well-nourished well-developed very friendly male awake alert and oriented x3 in no acute distress Extrem Other: Bilateral lower extremity examination shows good capillary refill, no skin lesions noted, normal sensation light touch Right knee examination shows a minimal effusion, minimal crepitus with range of motion, tenderness along his medial joint line, positive Franci's test, no instability Results Reviewed Results Reviewed: X-rays of the patient's right knee show mild joint space narrowing, no acute bony abnormalities Assessment & Plan Assessment & Plan (1) Right knee pain: Code(s): M25.561 - Pain in right knee Category: Medical Plan Mr. Saucedo presents with right knee pain and mechanical symptoms most likely due to a tear of his medial meniscus. Thus, I will send the patient for an MRI of his right knee for further evaluation. I will see him back once the MRI is completed to discuss the findings and treatment options. Feel free to call me any time should questions regarding his orthopedic management arise. I spent 22 minutes in reviewing the patient's records and imaging studies, seeing the patient and documenting in the medical record. Orders: Orders MR knee RT wo con Today M25.561 - Pain in right knee Coding Level of Care Code Est Pt Level 3 (89768) Diagnoses Right knee pain M25.561
[2024-03-18 08:40] VITALS: BMI 62.0
== END 2024-03-18 08:55 | disposition home or self-care (01) ==
PROVIDERS: PCP Nurse Practitioner Family; Visit Provider Orthopaedic Surgery
DX: M25.561 Pain in right knee (principal)
CPT/HCPCS: 99213

== ENCOUNTER → 2024-03-18 08:29 | Outpatient (BNVA) | payer OTHER, SELFPAY | PROVIDERS: PCP Nurse Practitioner Family; Visit Provider Orthopaedic Surgery | DX: M25.561 Pain in right knee (principal) | CPT/HCPCS: 99212 ==

== ENCOUNTER 2024-05-13 07:34 | Outpatient (AMB) | payer OTHER, SELFPAY ==
--- NOTE | 2024-05-13 07:35 | MHC.OFFVIS ---
Intake Visit Reasons: Right knee pain and giving way Intake Note: Andrea is a 63 year old male who presents with complaints of progressively worsening right knee pain and giving way. The patient did undergo left knee arthroscopic surgery several years ago. He reports minimal discomfort in his left knee. He describes his right knee pain as sharp in nature. Most of the pain is along the medial aspect of his knee. His right knee pain has gotten worse over the last year in spite of continued non operative treatments. He has failed the last 3 months of conservative treatment. He has had cortisone injections which lasted 2 days. He also had a viscosupplementation injection which lasted 2 weeks. Has tried Tylenol and anti-inflammatory medicines which gave him minimal relief. He states that his right knee will give out several times per day. Allergies Puiwaqn-HZI-JbJ Reductase Inhibitor Adverse Reaction (Intermediate, Verified 05/13/24 07:38) Joint Pain Medication List - Last Reconciled 05/13/24 by Kole Madera MD fluvastatin 40 mg PO QPM lisinopril 5 mg PO DAILY PFSH Medical History HTN (hypertension) Knee arthropathy Social History Housing: House Patient Tobacco Use Status: Never used Tobacco e-Cigarette/Vaping Use: Never Used Second Hand Smoke Exposure: No service: No Current occupational status: retired and disabled Cognitive needs: No Hearing needs: No Vision needs: No Physical Exam Const Other: Well-nourished well-developed very friendly male awake alert and oriented x3 in no acute distress Extrem Other: Bilateral lower extremity examination shows good capillary refill, no skin lesions noted, normal sensation light touch Right knee examination shows a minimal effusion, mild crepitus with range of motion, tenderness along his medial joint line, positive Franci's test, no instability Results Reviewed Results Reviewed: Standing full weight-bearing x-rays of the patient's right knee show mild to moderate diffuse joint space narrowing, no acute bony abnormalities MRI of the patient's right knee shows mild to moderate degenerative changes most significant in the medial compartment as well as a tear of the posterior horn of the medial meniscus Assessment & Plan Assessment & Plan (1) Tear of medial meniscus of right knee: Code(s): S83.241A - Other tear of medial meniscus, current injury, right knee, initial encounter Category: Medical Plan Mr. Saucedo presents with progressively worsening right knee pain and mechanical symptoms due to early degenerative joint disease as well as a tear of his medial meniscus. I had a lengthy discussion with the patient regarding the treatment options. At this point he has failed continued non operative treatments. The risks and benefits of right knee arthroscopic surgery were discussed at length with the patient. The patient wishes to proceed with surgery. Surgery will most likely involve right knee diagnostic arthroscopy with arthroscopic partial medial meniscectomy. The patient does understand that he may not get 100% relief of his symptoms depending on the severity of his degenerative changes. I do feel that he will get significant relief because of his mechanical symptoms. The patient also did well following left knee arthroscopic surgery in the past. The patient will be scheduled for next available date. He will follow-up as instructed. Feel free to call me at any time should questions regarding his orthopedic management arise. I spent 20 minutes in reviewing the patient's records and imaging studies, seeing the patient and documenting in the medical record. Coding Level of Care Code Est Pt Level 3 (00774) Complex EM visit Add On G2211 Diagnoses Tear of medial meniscus of right knee S83.128A
== END 2024-05-13 07:54 | disposition home or self-care (01) ==
PROVIDERS: PCP Nurse Practitioner Family; Visit Provider Orthopaedic Surgery
DX: S83.241A Other tear of medial meniscus, current injury, right knee, initial encounter (principal)
CPT/HCPCS: 99213; G2211

== ENCOUNTER → 2024-05-13 07:34 | Outpatient (BNVA) | payer OTHER, SELFPAY | PROVIDERS: PCP Nurse Practitioner Family; Visit Provider Orthopaedic Surgery | DX: S83.241D Other tear of medial meniscus, current injury, right knee, subsequent encounter (principal) | CPT/HCPCS: 99212 ==

== ENCOUNTER 2024-05-20 08:43 | Outpatient (REF) | payer OTHER, SELFPAY ==
[2024-05-20 09:56] LABS: MANUAL DIFF FLAG NO
[2024-05-20 09:58] LABS: Appearance Urine Clear; Color Urine Dark Yellow; Glucose Urine UA Negative (Negative); Leukocyte Esterase Urine Negative (Negative); Nitrite Urine Negative (Negative); PH 5.5 (5.0-9.0); Specific Gravity - Urine 1.025 (1.005-1.025); Urine Blood Negative (Negative); Urine Ketones Negative (Negative); Urine Protein Negative (Neg-Trace)
[2024-05-20 10:06] LABS: Basophils Absolute Auto 0.1 X10*3/uL (0.0-0.2); Basophils Percent Auto 0.8 % (0-2); Eosinophils Absolute Auto 0.3 X10*3/uL (0.0-0.4); Eosinophils Percent Auto 2.9 % (0-4); Hematocrit 48.8 % (42.0-52.0); Hemoglobin 15.6 g/dl (14.0-18.0); Imm Gran Abs Auto 0.08 X10*3/uL (0.00-0.03); Imm Gran Pct Auto 0.8 % (0.0-0.4); Lymphocytes Absolute Auto 3.1 X10*3/uL (1.2-4.9); Lymphocytes Percent Auto 31.1 % (20-40); Mean Corpuscular Hemoglobin 30.8 pg (27.0-33.0); Mean Corpuscular Volume 96.4 fL (80.0-98.0); Mean Platelet Volume 10.1 fL (9.4-12.4); Monocytes Absolute Auto 0.7 X10*3/uL (0.1-1.2); Neutrophils Absolute Auto 5.7 x10*3/uL (2.0-8.3); Neutrophils Percent Auto 57.4 % (45-73); Platelet Count 286 X10*3/uL (160-400); Red Blood Count 5.06 X10*6/uL (4.60-5.80); Red Cell Distribution Width 13.2 % (11.0-16.0)
[2024-05-20 10:41] LABS: Alanine Aminotransferase 16 U/L (0-40); Albumin Level 3.8 g/dL (3.5-5.0); Alkaline Phosphatase 45 U/L (39-117); Anion Gap 14 (12-20); Aspartate Amino Transferase 16 U/L (5-37); Bilirubin Total 0.5 mg/dL (0.0-1.0); Blood Urea Nitrogen 18 mg/dL (9-16); Calcium 9.6 mg/dL (8.4-10.2); Carbon Dioxide 28 mmol/L (22-29); Chloride 103 mmol/L (96-108); Cholesterol 263 mg/dL (<200); Estimated Glomerular Filt Rate > 60; Glucose Fasting 136 mg/dL (60-99); HDL Cholesterol 40 mg/dL (>40); LDL Cholesterol Calculated 200 mg/dL (<100); Potassium 4.9 mmol/L (3.3-5.1); Prostate Specific Antigen Scr 0.12 ng/mL (<0.05-4.0); Sodium 140 mmol/L (135-145); Total Protein 7.9 g/dL (6.5-8.0); Triglycerides 115 mg/dL (<150)
[2024-05-20 10:43] LABS: TSH reflex Free T4 1.84 uIU/mL (0.32-4.0)
== END 2024-05-20 08:44 | disposition home or self-care (01) ==
LOC: HO.HMGCLDS 08:43
PROVIDERS: PCP Nurse Practitioner Family; Visit Provider Nurse Practitioner Family
DX: Z00.01 Encounter for general adult medical examination with abnormal findings (principal); Z12.5 Encounter for screening for malignant neoplasm of prostate
CPT/HCPCS: 36415; 80053; 80061; 81003; 84153; 84443; 85025

== ENCOUNTER → 2024-05-20 09:31 | Outpatient (BNV) | payer OTHER, SELFPAY | PROVIDERS: PCP Nurse Practitioner Family; Visit Provider Internal Medicine | DX: I10 Essential (primary) hypertension (principal); Z01.810 Encounter for preprocedural cardiovascular examination | CPT/HCPCS: 93010 ==

== ENCOUNTER 2024-06-02 05:59 | Day surgery (SDC) | payer OTHER, SELFPAY ==
--- NOTE | 2024-05-20 09:31 | ECG_ITS ---
Test Reason : pre op Blood Pressure : / mmHG Vent. Rate : 075 BPM Atrial Rate : 075 BPM P-R Int : 160 ms QRS Dur : 078 ms QT Int : 370 ms P-R-T Axes : 002 -14 024 degrees QTc Int : 413 ms Normal sinus rhythm Normal ECG No previous ECGs available Referred By: Joon Galarza Electronically Signed By:ELISABETH DELUCA
[2024-05-29 15:01] VITALS: BMI 62.0
[2024-06-02] VITALS (8 sets, daily range): BP systolic 136–151; BP diastolic 75–97; PULSE 54–91; RESP 16–20; TEMP 36.1–37.1; O2SAT 94–98; BMI 35.2; BMI 61.0
[2024-06-02] MEDS: Lactated Ringers 1,000 ML 50 ML IVCONT (06:49)
--- NOTE | 2024-06-02 07:24 | HO.ANESPROP2 ---
HPI - Anesthesia Eval Consult details Narrative: right knee PMFSH Active Problems Active Problems: All Active Problems Newly diagnosed diabetes (Acute) Pre-op evaluation (Acute) Tear of medial meniscus of right knee (Acute) Obesity (Acute) Encounter for routine adult physical exam with abnormal findings (Acute) Osteoarthritis of right knee (Acute) Right knee pain (Acute) Facial lesion (Acute) HTN (hypertension) (Acute) Dyslipidemia (Acute) Screening for prostate cancer (Acute) Screening for colon cancer (Acute) Physical exam (Acute) Past Medical History Medical History HTN (hypertension) Knee arthropathy Family History Family history of problems with anesthesia: No Surgical History History of Problems with Anesthesia: No Social History Social History Housing: House Are you a primary child care giver to a significant other at home: No Do you presently have visiting nurse or other home services: No Patient Tobacco Use Status: Never used Tobacco e-Cigarette/Vaping Use: Never Used Second Hand Smoke Exposure: No Use of substances other than those prescribed or required for medical reasons: No Have you been hit, kicked, punched, or otherwise hurt by someone within the past year? If so, by whom?: No Are you DNR?: No Advance Directives: No Advance Directives Information Provided: Yes Recently lost weight without trying: No Nutrition Risks: No Nutritional Risk service: No Current occupational status: retired and disabled Cognitive needs: No Hearing needs: No Vision needs: No Meds Allergies Allergy/AdvReac Type Severity Reaction Status Date / Time Mqusyjb-GLW-XzU Reductase AdvReac Intermediate Joint Pain Verified 05/13/24 07:38 Inhibitor Active Medications: Current Medications Lactated Ringer's (Lr) 1,000 mls @ 50 mls/hr IVCONT .Q20H LILLIAN Last Admin: 06/02/24 06:49 Dose: 50 mls/hr Exam Height,Weight and Vital Signs: Height 5 ft 10 in Weight 192.777 kg Last Vital Signs Temp 98.7 F 06/02/24 06:45 Pulse 77 06/02/24 06:45 Resp 20 06/02/24 06:45 BP 143/77 H 06/02/24 06:45 Pulse Ox 94 06/02/24 06:45 O2 Del Method Room Air 06/02/24 06:45 Airway Mallampati Class: III TM Dist: >3cm Neck ROM: Limited Heart: rrr Lungs: cta Assessment and Plan Assessment Anesthesia Assessment: Anesthesia Plan Discussed Final Anesthetic Review Family History of Problems with Anesthesia: No History of Problems with Anesthesia: No NPO: Yes ASA Class: III Final Preanesthetic Review: No Changes in Pt Med Stat, Meds/Allgs Chart Reviewed, Consent Obtained/Reviewed and Anes Risks/Benef Reviewed Patient Risk: High Procedure Risk: Low Anesthetic Plan Anesthetic Plan: GA Disposition: Standard PACU
--- NOTE | 2024-06-02 08:53 | PM.OP ---
Brief Operative Note Date of Service: 06/02/24 Pre-op diagnosis: Right knee medial meniscus tear, right knee degenerative joint disease Post-op diagnosis: same Procedure: Right knee diagnostic arthroscopy with right knee arthroscopic partial medial meniscectomy, right knee arthroscopic chondroplasty of the undersurface of the patella, trochlear groove and medial femoral condyle Implants: None Surgeon: Kole Madera MD Anesthesia: GETA Was an Traffic Division Commanding Officer used for this Procedure?: No Estimated blood loss (mL): 10 Pathology: none sent Condition: stable Disposition: PACU
--- NOTE | 2024-06-02 08:54 | W.PM.OPN ---
Operative Note Operative Note Date of Service: 06/02/24 Narrative: After the patient was identified as Andrea Saucedo and his right knee was initialed by myself they were brought to the operating room where general anesthesia was induced by the anesthesiologist in routine fashion. The patient was given 3 g of IV Ancef for infection prophylaxis. A formal time-out was completed. The patient's right lower extremity was prepped and draped in sterile fashion. Marcaine with epinephrine was injected into the planned incision sites as well as their right knee joint. A # 11 scalpel blade was used to make an anterolateral portal 1 cm proximal to the joint line and 1 cm lateral to the patellar tendon. Blunt trocar technique was used into the suprapatellar pouch with the knee in extension. Diagnostic arthroscopy showed multiple bands of thickened plica which would be excised at the end of the procedure. There were no loose bodies or abnormalities found in either the medial or lateral gutters. There were diffuse grades 1 and 2 degenerative changes of the undersurface of the patella as well as grades 1 and 2 degenerative changes of the trochlear groove. The patient's knee was flexed to 45 degrees and a valgus force was placed upon it. The medial compartment was entered. An anteromedial portal was made 1 cm proximal to the joint line and 1 cm medial to the patellar tendon. Probing of the medial meniscus showed a radial tear of the posterior horn. A partial medial meniscectomy was performed using the arthroscopic shaver. Following the partial meniscectomy the remainder of the meniscus tissue was stable. There were diffuse grades 2 and 3 degenerative changes of the medial femoral condyle as well as diffuse grade 1 degenerative changes of the medial tibial plateau. The articular surface of the medial femoral condyle was made smooth using the arthroscopic shaver. The articular surface of the medial tibial plateau was already smooth so no chondroplasty was indicated. The patient's knee was then placed into a neutral position. There was no injury to the anterior cruciate ligament. The patient's knee was then placed into the figure of 4 position and the lateral compartment was entered. There were minimal degenerative changes of the lateral femoral condyle and lateral tibial plateau. There was no evidence of lateral meniscus tearing. The patient's knee was once again brought into extension and the suprapatellar pouch was entered. The arthroscopic shaver and the ArthroCare Wand were used to excise the thickened bands of plica. The undersurface of the patella and the trochlear groove articular surface were then made smooth using the arthroscopic shaver. The knee joint was irrigated and then drained. All arthroscopic instruments were removed. The 2 portals were closed with 3-0 nylon interrupted suture. The knee joint was injected with Marcaine. Dry sterile dressing and Uday bandages were placed over the patient's knee. The patient was awoken and extubated in the operating room. They were transferred to the recovery room in stable condition.
[2024-06-02] MEDS: cefTRIAXone sodium 1 GM VIAL IVPUSH (09:25)
== END 2024-06-02 10:39 | disposition home or self-care (01) ==
PROVIDERS: PCP Nurse Practitioner Family; Visit Provider Orthopaedic Surgery
PROC: (CPT 29870; principal; 2024-06-02 07:30)
DX: S83.241A Other tear of medial meniscus, current injury, right knee, initial encounter (principal); M17.11 Unilateral primary osteoarthritis, right knee; M67.51 Plica syndrome, right knee; M23.51 Chronic instability of knee, right knee; X58.XXXA Exposure to other specified factors, initial encounter; Y93.9 Activity, unspecified; Y92.89 Other specified places as the place of occurrence of the external cause; Y99.8 Other external cause status; I10 Essential (primary) hypertension; Z79.899 Other long term (current) drug therapy; Z88.8 Allergy status to other drugs, medicaments and biological substances; Z98.890 Other specified postprocedural states
CPT/HCPCS: 29881; 93005; J0131; J0171; J0330; J0690; J0696; J1100; J1885; J2003; J2371; J2405; J2704; J2795; J3010

== ENCOUNTER → 2024-06-02 05:59 | Outpatient (BNV) | payer OTHER, SELFPAY | PROVIDERS: PCP Nurse Practitioner Family; Visit Provider Orthopaedic Surgery | DX: S83.241A Other tear of medial meniscus, current injury, right knee, initial encounter (principal) | CPT/HCPCS: 29881 ==

== ENCOUNTER 2024-06-17 11:39 | Outpatient (AMB) | payer OTHER, SELFPAY ==
--- NOTE | 2024-06-17 11:45 | MHC.OFFVIS ---
Intake Visit Reasons: PO RT knee 06/02/24 Intake Note: Andrea is a 63 year old male who presents to the office today for a PO RT knee 06/02/24 . Patient reports he is doing well. He mentions having some stiffnes when walking. He denies any fevers or chills. He continues with his home stretching program. Allergies Gwddoga-THK-ViD Reductase Inhibitor Adverse Reaction (Intermediate, Verified 06/17/24 11:50) Joint Pain Medication List - Last Reconciled 06/17/24 by Kole Madera MD blood sugar diagnostic ([employer] Verio test strips) Test blood sugar twice a day blood-glucose meter ([employer] Verio Flex Meter) Test blood sugar twice a day fluvastatin 40 mg PO QPM lancets ([employer] Delica Plus Lancet) Test blood sugar twice a day lisinopril 5 mg PO DAILY oxycodone 5 mg PO Q6H PRN PFSH Medical History HTN (hypertension) Knee arthropathy Social History Housing: House Are you a primary rn homecare to a significant other at home: No Do you presently have visiting nurse or other home services: No Patient Tobacco Use Status: Never used Tobacco e-Cigarette/Vaping Use: Never Used Second Hand Smoke Exposure: No service: No Current occupational status: retired and disabled Cognitive needs: No Hearing needs: No Vision needs: No Physical Exam Extrem Other: Right knee examination shows that the surgical incisions are healing well, no erythema, full active extension and flexion to 120 degrees, minimal discomfort with range of motion Assessment & Plan Assessment & Plan (1) Right knee pain: Code(s): M25.561 - Pain in right knee Category: Medical Plan Andrea is doing well after undergoing right knee arthroscopic surgery on 06/02/2024. His sutures were removed and Steri-Strips placed over his incisions. He will gradually progress to activities as tolerated. He will contact me prior to his follow-up appointment in 6-8 weeks should any questions or concerns arise. Feel free to call me at any time should questions regarding his orthopedic management arise. Coding Level of Care Code Global (93427) Diagnoses Right knee pain M25.561
== END 2024-06-17 12:00 | disposition home or self-care (01) ==
PROVIDERS: PCP Nurse Practitioner Family; Visit Provider Orthopaedic Surgery
DX: M25.561 Pain in right knee (principal)
CPT/HCPCS: 99024

== ENCOUNTER → 2024-06-17 11:39 | Outpatient (BNVA) | payer OTHER, SELFPAY | PROVIDERS: PCP Nurse Practitioner Family; Visit Provider Orthopaedic Surgery | DX: M25.561 Pain in right knee (principal); M25.661 Stiffness of right knee, not elsewhere classified; Z47.89 Encounter for other orthopedic aftercare; Z98.890 Other specified postprocedural states | CPT/HCPCS: 99212 ==

== ENCOUNTER → 2024-06-20 08:27 | Outpatient (BNVA) | payer OTHER, SELFPAY | PROVIDERS: PCP Nurse Practitioner Family ==

== ENCOUNTER → 2024-08-01 08:56 | Outpatient (BNVA) | payer OTHER, SELFPAY | PROVIDERS: PCP Nurse Practitioner Family ==

== ENCOUNTER 2024-08-12 11:24 | Outpatient (AMB) | payer OTHER, SELFPAY ==
--- NOTE | 2024-08-12 11:28 | A.OFFPC_ITS ---
Vital Signs 08/12/24 11:31 Height 5 ft 10 in Weight 434 lb BMI 62.3 BP 138/82 Blood Pressure Location Rt brachial Position Sitting Pulse 80 Pulse Source Pulse Oximeter Pulse Oximetry (%) 96 Intake Visit Reasons: 6M F/U Intake Note: pt is here for 6 mon f.up, dm f/up. 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 Required: No Accompanied by: Self / Same As Patient Allergies Wnkpjpe-UPA-HcE Reductase Inhibitor Adverse Reaction (Intermediate, Verified 08/12/24 11:29) Joint Pain Medication List - Last Reconciled 08/12/24 by Joon Galarza [facility] blood sugar diagnostic (OneTouch Verio test strips) Test blood sugar twice a day blood-glucose meter (OneTouch Verio Flex Meter) Test blood sugar twice a day lancets (OneTouch Delica Plus Lancet) Test blood sugar twice a day lisinopril 10 mg PO DAILY Tobacco use date assessed: 08/12/24 Dental Screening Dental Screen Date: 08/12/24 Did you have a dental visit in the last 12 months?: Yes Did you have a dental problem in the last 6 months where you did not have access to dental care?: No Was dental information given to patient?: Patient has dentist HPI 6M F/U HPI Details Chief Complaint Newly diagnosed diabetes mellitus for follow-up. History of Present Illness The patient is a 63-year-old male presenting with a newly diagnosed Diabetes Emily litus for follow-up. He reports the condition was recently identified and is actively managing it by monitoring his blood glucose levels daily. The patient's blood glucose readings are averaging around 110 mg/dL. During this visit, the patient's Hemoglobin A1c was recorded at 6.5%. He denies experiencing polyuria or polydipsia but reports intermittent neuropathy. The patient had previously consulted with a nurse navigator for diabetic education. He also has a history of intolerance to statins. His morbidity is exacerbated by obesity, but he is actively taking steps to monitor his condition. Social History - No information provided. Health Maintenance - Patient refuses all vaccinations - Blood glucose monitoring for Diabetes Mellitus - Diet monitoring for Diabetes Mellitus Review of Systems - Neurological: Reports intermittent rosendo ropathy Physical Exam General: Cooperative, healthy appearing, comfortable, no acute distress and well developed, morbidly obese Orientation: Patient oriented x3 Limitations: No limitations Head: Normal to inspection Ears: Hearing grossly normal bilaterally Nose: Normal external nose present Face and sinus: Normal facial exam Eyes: Appearance normal, both eyes and all related structures Neck: Normal visual inspection and Yes full ROM Respiratory: Normal respiratory effort and able to speak in complete sentences. Clear to auscultation bilaterally Cardiovascular: Regular rate and rhythm. Normal S1 and S2 GI: Normal to inspection. Soft to palpation and nontender Skin: No rashes or lesions noted Neuro: Patient oriented x3 Extremities: Normal to inspection, good sensation with monofilament, bilateral feet. Feet were intact otherwise. Results - Labs: Hemoglobin A1c: 6.5% Plan - Monitor dietary intake as a non-pharma cologic intervention for Diabetes Mellitus. - Continue daily blood sugar monitoring to maintain control of diabetes. - Follow up with laboratory tests in two months to assess metabolic control and potential biomarkers. - Additional follow-up for diabetes jersey sauceda recommended in six months. - Statins not to be prescribed due to in tolerance; consider alternative lipid- lowering strategies if indicated. Patient was informed and verbally consented to the use of an ambient scribe for clinic note documentation during this visit. Discussion Notes During the visit, I discussed with the patient the management of recently diagnosed Diabetes Mellitus, highlighting the importance of maintaining a consistent diet and monitoring blood glucose levels regularly. Given the patient's blood glucose levels and current A1c of 6.5%, he is managing the condition well. We addressed his intolerance to statins and reconfirmed not including statins in his treatment plan. I emphasized the importance of regular follow-up to monitor his condition and scheduled a follow-up with laboratory tests in two months. Despite the recommendation, the patient declined vaccinations, which was acknowledged. Patient Instructions - Continue daily blood sugar monitoring as instructed. - Maintain and monitor a balanced diet t o manage diabetes. - Attend follow-up lab visits in two mon ths. - Schedule a diabetes management review in six months. - Report any worsening symptoms or new c oncerns promptly. [facility] Medical History HTN (hypertension) Knee arthropathy Surgical History No pertinent past surgical history Social History Housing: House Are you a primary post acute care registered nurse to a significant other at home: No Do you presently have visiting nurse or other home services: No Patient Tobacco Use Status: Never used Tobacco e-Cigarette/Vaping Use: Never Used Second Hand Smoke Exposure: No service: No Current occupational status: retired and disabled Cognitive needs: No Hearing needs: No Vision needs: No Questionnaire PHQ-9 Over the last 2 weeks, how often have you been bothered by any of the following problems? 1. Little interest or pleasure in doing things: not at all 2. Feeling down, depressed, or hopeless: not at all 3. Trouble falling or staying asleep, or sleeping too much: not at all 4. Feeling tired or having little energy: not at all 5. Poor appetite or overeating: not at all 6. Feeling bad about yourself - or that you are a failure or have let yourself or your family down: not at all 7. Trouble concentrating on things, such as reading the newspaper or watching television: not at all 8. Moving or speaking so slowly that other people could have noticed. Or the opposite - being so fidgety or restless that you have been moving around a lot more than usual: not at all 9. Thoughts that you would be better off or of hurting yourself in some way: not at all Total score: 0 Depression Screening Interpretation: Negative Depression Screening Done: Yes 20990 - PHQ-9 Billing: Yes Source: Developed by Drs. Jarvis Deleon, Shereen Xie, Mehul Bradley and colleagues, with an educational kim from [employer]. Thrive Questionnaire Date Thrive assessed: 08/12/24 I am a: Patient What is your living situation today?: I have a steady place to live Within the past 12 months, did the food you bought not last and you didn't have the money to get more?: Never true Within the past 12 months, did you worry whether your food would run out before you got money to buy more?: Never true Do you have trouble paying for medicines?: No Do you have trouble getting transportation to medical appointments?: No Do you have trouble paying your heating and electricity bill?: No Do you have trouble taking care of your child, family member or friend?: No Do you have trouble with day-to-day activities such as bathing, preparing meals, shopping, managing finances, etc.?: No Are you currently unemployed and looking for a job?: No Are you interested in more education?: No Please select the resources that you would like help with: None Currently or been in a relationship where the following occur: No concerns reported THRIVE Score: 0 AUDIT C Alcohol Use Questionnaire (AUDIT-C) 1. How often do you have a drink containing alcohol?: 2-4 times a month 2. How many drinks containing alcohol do you have on a typical day when you are drinking?: 3 or 4 3. How often do you have six or more drinks on one occasion?: Never Total Score: 3 Score Reviewed/Action Taken: Yes BRITNI-7 AMB Questionnaire BRITNI-7 Date BRITNI - 7 assessed: 08/12/24 Feeling nervous, anxious, or on edge: 0 = Not at all Not being able to stop or control worryin = Not at all Worrying too much about different things: 0 = Not at all Trouble relaxin = Not at all Being so restless that it is hard to sit still: 0 = Not at all Becoming easily annoyed or irritable: 0 = Not at all Feeling afraid as if something awful might happen: 0 = Not at all Total BRITNI-7 score (0-4 normal; 5-9 mild; 10-14 moderate; 15-21 severe): 0 Source: Developed by Drs. Jarvis Deleon, Shereen Xie, Mehul Bradley and colleagues, with an educational kim from [employer]. BRITNI-7 Assessment Billing BRITNI-7 Assessment Tool: BRITNI-7 Assessment 89875 Physical exam (Primary Care) Vital Signs: Last Vital Signs Pulse 80 08/12/24 11:31 BP 138/82 08/12/24 11:31 Pulse Ox 96 08/12/24 11:31 BMI result Body Mass Index 62.3 Tobacco/Smoking Status: Tobacco use Status Tobacco use date assessed 08/12/24 08/12/24 11:31 Patient Tobacco Use Status Never used Tobacco 08/12/24 11:28 e-Cigarette/Vaping Use Never Used 08/12/24 11:28 PHQ-9: PHQ-9 Score PHQ-9: Total score 0 08/12/24 11:42 Depression Screening Interpretation: Negative Thrive Assessment: Date of Thrive Assessment Date Thrive assessed 08/12/24 08/12/24 11:31 Currently or been in a relationship where the following occur: No concerns reported Results AMB Hemoglobin A1c AMB Hemoglobin A1c 6.5 % Last Edit by Rustam Shields CMA on 08/12/24 11: 57 Results Reviewed Results Reviewed: Laboratory Last Values Hgb A1c (Clinic) 6.5 % (4.0-6.0) H 08/12/24 11:45 Coding Level of Care Code Est Pt Level 3 (98970) Diagnoses Newly diagnosed diabetes E11.9 Additional Codes BRITNI-7 Assessment Billing - BRITNI-7 Assessment Tool: BRITNI-7 Assessment 97075 ([id number]) PHQ-9 - 15651 - PHQ-9 Billing: Yes ([id number]) Assessment & Plan Assessment & Plan (1) Newly diagnosed diabetes: Code(s): E11.9 - Type 2 diabetes mellitus without complications Category: Medical Plan . Orders: Orders AMB Hemoglobin A1c Today Z13.9 - Encounter for screening, unspecified UA CC w/rflx Micro + Cult Today E11.9 - Type 2 diabetes mellitus without complications Microalbumin, Random (w Creat) Today E11.9 - Type 2 diabetes mellitus without complications Complete Blood Count Auto Diff Today E11.9 - Type 2 diabetes mellitus without complications Comprehensive [place]. Panel Fast Today E11.9 - Type 2 diabetes mellitus without complications TSH reflex Free T4 Today E11.9 - Type 2 diabetes mellitus without complications Lipid Panel Today E11.9 - Type 2 diabetes mellitus without complications Medications: New ezetimibe 10 mg PO DAILY 90 days 90 tabs 0RF Refilled lisinopril increased dose from 5mg to 10mg 10 mg PO DAILY 90 tabs 0RF
[2024-08-12 11:31] VITALS: BP 138/82; PULSE 80; O2SAT 96; BMI 62.3
== END 2024-08-12 13:37 | disposition home or self-care (01) ==
PROVIDERS: PCP Nurse Practitioner Family; Visit Provider Nurse Practitioner Family
DX: Z13.9 Encounter for screening, unspecified (principal); E11.9 Type 2 diabetes mellitus without complications

== ENCOUNTER → 2024-08-12 11:24 | Outpatient (BNVA) | payer OTHER, SELFPAY | PROVIDERS: PCP Nurse Practitioner Family; Visit Provider Nurse Practitioner Family | DX: E11.9 Type 2 diabetes mellitus without complications (principal) | CPT/HCPCS: 83036; 96127; 99212 ==

== ENCOUNTER 2024-08-19 10:38 | Outpatient (AMB) | payer OTHER, SELFPAY ==
[2024-08-19 10:40] VITALS: BMI 62.3
--- NOTE | 2024-08-19 10:40 | A.OFFVIS_ITS ---
Vital Signs 08/19/24 10:40 Height 5 ft 10 in Weight 434 lb BMI 62.3 Intake Visit Reasons: PO RT knee 06/02/24 Intake Note: Andrea is a 63 year old male who presents to the office today post operatively after undergoing a right knee arthroscopy 06/02/24. He reports mild intermittent discomfort in his knee. He denies any fevers or chills. He continues with his home exercise program. Allergies Ioixsuc-HCK-GqG Reductase Inhibitor Adverse Reaction (Intermediate, Verified 08/19/24 10:41) Joint Pain Medication List - Last Reconciled 08/19/24 by Kole Madera MD blood sugar diagnostic ([employer] Verio test strips) Test blood sugar twice a day blood-glucose meter ([place] Verio Flex Meter) Test blood sugar twice a day ezetimibe 10 mg PO DAILY 90 days lancets ([place] Delica Plus Lancet) Test blood sugar twice a day lisinopril 10 mg PO DAILY PFSH Medical History HTN (hypertension) Knee arthropathy Surgical History No pertinent past surgical history Social History Housing: House Are you a primary skin care specialist to a significant other at home: No Do you presently have visiting nurse or other home services: No Patient Tobacco Use Status: Never used Tobacco e-Cigarette/Vaping Use: Never Used Second Hand Smoke Exposure: No service: No Current occupational status: retired and disabled Cognitive needs: No Hearing needs: No Vision needs: No Physical Exam Vital Signs: BMI result Body Mass Index 62.3 Const Other: Well-nourished well-developed very friendly male awake alert and oriented x3 in no acute distress Extrem Other: Bilateral lower extremity examination shows good capillary refill, no skin lesions noted, normal sensation light touch Right knee examination shows a minimal effusion, mild crepitus with range of motion, no instability Assessment & Plan Assessment & Plan (1) Right knee pain: Code(s): M25.561 - Pain in right knee Category: Medical Plan Andrea continues to do well after undergoing right knee arthroscopic surgery on 06/02/2024. He will continue with his home exercise program. Does have residual discomfort due to osteoarthritis. We will hold off on an injection at this time. Will contact me prior to his follow-up appointment in 3 months should any questions or concerns arise. Feel free to call me at any time should questions regarding his orthopedic management arise. I spent 21 minutes in reviewing the patient's records and imaging studies, seeing the patient and documenting in the medical record. Coding Level of Care Code Global (89058) Diagnoses Right knee pain M25.561
== END 2024-08-19 11:00 | disposition home or self-care (01) ==
PROVIDERS: PCP Nurse Practitioner Family; Visit Provider Orthopaedic Surgery
DX: M25.561 Pain in right knee (principal)
CPT/HCPCS: 99024

== ENCOUNTER → 2024-08-19 10:38 | Outpatient (BNVA) | payer OTHER, SELFPAY | PROVIDERS: PCP Nurse Practitioner Family; Visit Provider Orthopaedic Surgery | DX: M25.561 Pain in right knee (principal) | CPT/HCPCS: 99212 ==

== ENCOUNTER 2025-03-12 12:42 | Outpatient (AMB) | payer OTHER, SELFPAY ==
--- NOTE | 2025-03-12 12:44 | MHC.PC.OV ---
Vital Signs 03/12/25 12:47 Weight 435 lb BP 142/90 H Blood Pressure Location Rt brachial Position Sitting Pulse 77 Pulse Source Pulse Oximeter Temp 98.4 F Temp Source Oral Pulse Oximetry (%) 94 Oxygen Delivery Method Room Air Intake Visit Reasons: PE Allergies Tkcjozg-EYN-JdE Reductase Inhibitor Adverse Reaction (Intermediate, Verified 03/12/25 12:47) Joint Pain Tobacco use date assessed: 03/12/25 Dental Screening Dental Screen Date: 03/12/25 Did you have a dental visit in the last 12 months?: Yes Did you have a dental problem in the last 6 months where you did not have access to dental care?: No Was dental information given to patient?: Patient has dentist HPI PE HPI Details History of Present Illness The patient is a 64-year-old male presenting for follow-up of diabetes and a physical examination. He has a history of diabetes mellitus, with a current A1c of 6.5%. The patient is grossly obese, which has been a long-standing issue. He denies any urinary symptoms, abdominal pain, blood in stool, constipation, diarrhea, chest pain, or increased shortness of breath. There is no history of thyroid disease, cancer, or pancreatitis. The patient has multiple skin tags located on the nape of the neck and around the neck. He also presents with redness and discoloration on the bilateral shins, more pronounced on the right side, and edema in the bilateral lower extremities, right slightly greater than left. NOTE: choles meds cause a lot of joint pains Health Maintenance - Colon cancer screening with stool test (Cologuard) is up to date. Social History Review of Systems - Gastrointestinal: Denies abdominal pain, blood in stool, constipation, diarrhea - Genitourinary: Denies urinary symptoms - Cardiovascular: Denies chest pain - Respiratory: Denies increased shortness of breath Physical Exam General: Cooperative, healthy appearing, comfortable, no acute distress and well developed. Grossly obese Orientation: Patient oriented x3 Limitations: No limitations Head: Normal to inspection Ears: Hearing grossly normal bilaterally Nose: Normal external nose present Face and sinus: Normal facial exam Eyes: Appearance normal, both eyes and all related structures Neck: Normal visual inspection and Yes full ROM. Multiple skin tags to nape of neck, around neck Respiratory: Normal respiratory effort and able to speak in complete sentences. Clear to auscultation bilaterally Cardiovascular: Regular rate and rhythm. Normal S1 and S2 GI: Normal to inspection. Soft to palpation and nontender Skin: No rashes or lesions noted. Redness discoloration to bilateral shins, right greater than left Neuro: Patient oriented x3 Extremities: Normal to inspection. edema to bilateral extremities, right greater than left Results - Labs: Hemoglobin A1c is 6.5% Plan The patient's diabetes management will be optimized by considering the addition of a GLP-1 agonist, given his obesity and current A1c level of 6.5%. Regular follow-up and monitoring of his weight and A1c levels will be necessary to assess the effectiveness of the treatment plan. Preventative care measures, including maintaining up-to-date colon cancer screening with Cologuard, will continue to be emphasized. Discussion Notes I discussed with the patient the importance of managing his diabetes and obesity, highlighting the potential benefits of a GLP-1 agonist in controlling his A1c and aiding weight loss. We also reviewed the need for regular monitoring of his A1c and weight, and the importance of keeping his colon cancer screening up to date with Cologuard. Patient Instructions - Continue monitoring blood sugar levels regularly. - Follow up with the clinic for regular A1c and weight checks. - Maintain up-to-date colon cancer screening with Cologuard. -encouraged getting labs drawn in the near future fasting [facility] Medical History HTN (hypertension) Knee arthropathy Surgical History No pertinent past surgical history Social History Housing: House Are you a primary healthcare economics manager to a significant other at home: No Do you presently have visiting nurse or other home services: No Patient Tobacco Use Status: Never used Tobacco e-Cigarette/Vaping Use: Never Used Second Hand Smoke Exposure: No service: No Current occupational status: retired and disabled Cognitive needs: No Hearing needs: No Vision needs: No Questionnaire PHQ-9 Over the last 2 weeks, how often have you been bothered by any of the following problems? 1. Little interest or pleasure in doing things: not at all 2. Feeling down, depressed, or hopeless: not at all 3. Trouble falling or staying asleep, or sleeping too much: not at all 4. Feeling tired or having little energy: not at all 5. Poor appetite or overeating: not at all 6. Feeling bad about yourself - or that you are a failure or have let yourself or your family down: not at all 7. Trouble concentrating on things, such as reading the newspaper or watching television: not at all 8. Moving or speaking so slowly that other people could have noticed. Or the opposite - being so fidgety or restless that you have been moving around a lot more than usual: not at all 9. Thoughts that you would be better off or of hurting yourself in some way: not at all Total score: 0 Depression Screening Interpretation: Negative Depression Screening Done: Yes 69872 - PHQ-9 Billing: Yes Source: Developed by Drs. Jarvis Deleon, Shereen Xie, Mehul Bradley and colleagues, with an educational kim from [employer]. Thrive Questionnaire Date Thrive assessed: 08/06/24 I am a: Patient What is your living situation today?: I have a steady place to live Within the past 12 months, did the food you bought not last and you didn't have the money to get more?: Never true Within the past 12 months, did you worry whether your food would run out before you got money to buy more?: Never true Do you have trouble paying for medicines?: No Do you have trouble getting transportation to medical appointments?: No Do you have trouble paying your heating and electricity bill?: No Do you have trouble taking care of your child, family member or friend?: No Do you have trouble with day-to-day activities such as bathing, preparing meals, shopping, managing finances, etc.?: No Are you currently unemployed and looking for a job?: No Are you interested in more education?: No Please select the resources that you would like help with: None Currently or been in a relationship where the following occur: No concerns reported THRIVE Score: 0 AUDIT C Alcohol Use Questionnaire (AUDIT-C) 1. How often do you have a drink containing alcohol?: 2-4 times a month 2. How many drinks containing alcohol do you have on a typical day when you are drinking?: 3 or 4 3. How often do you have six or more drinks on one occasion?: Never Total Score: 3 Score Reviewed/Action Taken: Yes BRITNI-7 AMB Questionnaire BRITNI-7 Date BRITNI - 7 assessed: 08/12/24 Feeling nervous, anxious, or on edge: 0 = Not at all Not being able to stop or control worryin = Not at all Worrying too much about different things: 0 = Not at all Trouble relaxin = Not at all Being so restless that it is hard to sit still: 0 = Not at all Becoming easily annoyed or irritable: 0 = Not at all Feeling afraid as if something awful might happen: 0 = Not at all Total BRITNI-7 score (0-4 normal; 5-9 mild; 10-14 moderate; 15-21 severe): 0 Source: Developed by Drs. Jarvis Deleon, Shereen Xie, Mehul Bradley and colleagues, with an educational kim from [employer]. BRITNI-7 Assessment Billing BRITNI-7 Assessment Tool: BRITNI-7 Assessment 98590 Physical exam (Primary Care) Vital Signs: Last Vital Signs Temp 98.4 F 03/12/25 12:47 Pulse 77 03/12/25 12:47 BP 142/90 H 03/12/25 12:47 Pulse Ox 94 03/12/25 12:47 Oxygen Delivery Method Room Air 03/12/25 12:47 Tobacco/Smoking Status: Tobacco use Status Tobacco use date assessed 03/12/25 03/12/25 12:54 Patient Tobacco Use Status Never used Tobacco 03/12/25 12:45 e-Cigarette/Vaping Use Never Used 03/12/25 12:45 PHQ-9: PHQ-9 Score PHQ-9: Total score 0 03/12/25 12:54 Depression Screening Interpretation: Negative Thrive Assessment: Date of Thrive Assessment Date Thrive assessed 08/06/24 03/12/25 12:45 Currently or been in a relationship where the following occur: No concerns reported Coding Level of Care Code Est Pt Level 3 (36736) Est Pt Prev Care 40-64y(35077) Diagnoses Diabetes E11.9 Vitamin D deficiency E55.9 Screening for prostate cancer Z12.5 Additional Codes BRITNI-7 Assessment Billing - BRITNI-7 Assessment Tool: BRITNI-7 Assessment 94050 ([id number]) PHQ-9 - 16250 - PHQ-9 Billing: Yes ([id number]) Assessment & Plan Assessment & Plan (1) Diabetes: Code(s): E11.9 - Type 2 diabetes mellitus without complications Category: Medical (2) Vitamin D deficiency: Code(s): E55.9 - Vitamin D deficiency, unspecified Category: Medical (3) Screening for prostate cancer: Code(s): Z12.5 - Encounter for screening for malignant neoplasm of prostate Category: Medical Plan . Orders: Orders Comprehensive [place]. Panel Fast Today E11.9 - Type 2 diabetes mellitus without complications TSH reflex Free T4 Today E11.9 - Type 2 diabetes mellitus without complications UA CC w/rflx Micro + Cult Today E11.9 - Type 2 diabetes mellitus without complications Lipid Panel Today E11.9 - Type 2 diabetes mellitus without complications Vitamin D 25-OH Total Today E55.9 - Vitamin D deficiency, unspecified Complete Blood Count Auto Diff Today E11.9 - Type 2 diabetes mellitus without complications Microalbumin, Random (w Creat) Today E11.9 - Type 2 diabetes mellitus without complications Prostate Specific Antigen Scr Today Z12.5 - Encounter for screening for malignant neoplasm of prostate Medications: New tirzepatide (Mounjaro) for 4 weeks 2.5 mg (0.5 mL) subcut QWEEK 2 mL 0RF
--- OUTSIDE RECORDS SUMMARY | 2025-03-12 12:44 | XMS_ITS | Clinical Summary ---
Author Organization [facility] Address [address] [place] [address] Care Team Providers Care Framing Mechanic Name Role Phone Solis Rockwell MD Primary Care Provider [phone] Allergies No known active allergies Medications Medication Sig Dispensed Refills Start Date End Date Status ibuprofen (ADVIL,MOTRIN) 800 MG tablet Take by mouth every 8 (eight) hours as needed for pain. 0 Active Acetaminophen (TYLENOL) 325 MG CAPS Take by mouth. 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 Morbid obesity 12/20/2017 Family History Medical History Relation Name Comments Diabetes Brother Hyperlipidemia Brother Hypertension Brother Cancer Father Diabetes Father Hypertension Father Arthritis Mother Hyperlipidemia Mother Relation Name Status Comments Brother Father Mother Social History Tobacco Use Types Packs/Day Years Used Date Smoking Tobacco: Never Smokeless Tobacco: Never Alcohol Use Standard Drinks/Week Comments Yes 5 (1 standard drink = 0.6 oz pur e alcohol) Sex and Gender Information Value Date Recorded Sex Assigned at Not on file Gender Identity Not on file Sexual Orientation Not on file Last Filed Vital Signs Vital Sign Reading Time Taken Comments Blood Pressure - - Pulse - - Temperature - - Respiratory Rate - - Oxygen Saturation - - Inhaled Oxygen Concentration - - Weight 190.5 kg (420 lb) 12/20/2017 8:49 AM EDT Height 177.8 cm (5' 10 ) 12/20/2017 8:49 AM EDT Body Mass Index 60.26 12/20/2017 8:49 AM EDT Plan of Treatment Health Maintenance Due Date Last Done Comments Hepatitis C Screening 1960 COVID-19 Vaccine (#1) 03[birth year]08/1963 Depression Screening 1974 Preventative Health Evaluation 1980 DTap / Tdap / Td (1 - Tdap) 1981 Colon Cancer Screening (Colonoscopy) 2007 Shingrix-Zoster Vaccine (1 of 2) 2012 Influenza Vaccine (#1) 2025 RSV Adult > 60+ Yrs or Pregn ant (1 - 1-dose 75+ series) 2037 Hepatitis B Vaccines Aged Out No long er eligible based on patient's age to complete this topic Pneumococcal Vaccine Aged Out No long er eligible based on patient's age to complete this topic RSV Ped < 20 months Aged Out No longe r eligible based on patient's age to complete this topic Care Teams Framing Mechanic Relationship Specialty Start Date End Date Solis Rockwell MD PCP - General Internal Medicine 11/30/17
[2025-03-12 12:47] VITALS: BP 142/90; PULSE 77; TEMP 36.9; O2SAT 94
== END 2025-03-12 13:30 | disposition home or self-care (01) ==
LOC: HO.HMCC 12:43
PROVIDERS: PCP Nurse Practitioner Family; Visit Provider Nurse Practitioner Family
DX: Z00.00 Encounter for general adult medical examination without abnormal findings (principal); E11.9 Type 2 diabetes mellitus without complications; E55.9 Vitamin D deficiency, unspecified; Z12.5 Encounter for screening for malignant neoplasm of prostate

== ENCOUNTER → 2025-03-12 12:42 | Outpatient (BNVA) | payer OTHER, SELFPAY | PROVIDERS: PCP Nurse Practitioner Family; Visit Provider Nurse Practitioner Family | DX: Z00.00 Encounter for general adult medical examination without abnormal findings (principal); E11.9 Type 2 diabetes mellitus without complications; E66.9 Obesity, unspecified; L91.8 Other hypertrophic disorders of the skin; E55.9 Vitamin D deficiency, unspecified | CPT/HCPCS: 83036; 96127; 99212; 99396 ==

== ENCOUNTER 2025-05-06 13:38 | Outpatient (AMB) | payer OTHER, SELFPAY ==
[2025-05-06 13:48] VITALS: BP 138/80; PULSE 67; TEMP 36.6; O2SAT 97; BMI 61.1
--- NOTE | 2025-05-06 13:48 | MHC.OFFWIV ---
Intake Vital Signs 05/06/25 13:48 Height 5 ft 10 in Weight 426 lb BMI 61.1 BP 138/80 Blood Pressure Location Lt brachial Position Sitting Pulse 67 Pulse Source Pulse Oximeter Temp 97.9 F Temp Source Oral Pulse Oximetry (%) 97 Oxygen Delivery Method Room Air Intake Visit Reasons: EP-sciatica pain Intake Note: pt presents with left sided sciatica x3 wks Patient Tobacco Use Status: Never used Tobacco Allergies Yamhbvt-TOI-ZvX Reductase Inhibitor Adverse Reaction (Intermediate, Verified 05/06/25 13:49) Joint Pain Do you need a note to return to daycare/school/sports/work: No HPI HPI Comments History of Present Illness Details History of Present Illness - The patient is a 64-year-old male presenting with severe left leg pain suspected to be due to sciatica. - The pain began suddenly one morning 2 weeks ago and has progressively worsened, initially attributed to sleeping awkwardly. - Described as sharp and stabbing, the pain originates from the top of the hip and radiates down the left leg, hindering activities like climbing stairs. - The patient denies loss of bladder or bowel control but experiences difficulty reaching the bathroom due to pain. - Attempts at stretching and activities such as mowing the lawn exacerbate the pain. - The patient has diabetes mellitus, managed with metformin, with generally well-controlled blood glucose levels. Review of Systems - Musculoskeletal: Reports sharp, stabbing pain in the left leg, exacerbated by movement. Denies any recent trauma. - Neurological: Denies loss of bladder or bowel control. Reports difficulty reaching the bathroom due to pain. - Endocrine: Reports history of diabetes mellitus, generally well-controlled with metformin. All systems reviewed and are unremarkable except as noted in HPI General: cooperative, healthy appearing and comfortable, patient oriented x3 Head: Yes normal to inspection and Yes normocephalic General nose exam: Normal external nose present Face and sinus: Yes normal facial exam Effort & Inspection: normal respiratory effort and able to speak in complete sentences Extremities: Straight leg raise test positive on left Neurological: chip gait 2/2 pain using cane [facility] Medical History HTN (hypertension) Knee arthropathy Surgical History No pertinent past surgical history Social History Housing: House Are you a primary acute care surgeon to a significant other at home: No Do you presently have visiting nurse or other home services: No Patient Tobacco Use Status: Never used Tobacco e-Cigarette/Vaping Use: Never Used Second Hand Smoke Exposure: No service: No Current occupational status: retired and disabled Cognitive needs: No Hearing needs: No Vision needs: No Physical Exam Vital Signs: Last Vital Signs Temp 97.9 F 05/06/25 13:48 Pulse 67 05/06/25 13:48 BP 138/80 05/06/25 13:48 Pulse Ox 97 05/06/25 13:48 Oxygen Delivery Method Room Air 05/06/25 13:48 BMI result Body Mass Index 61.1 Assessment & Plan Assessment & Plan (1) Left sided sciatica: Code(s): M54.32 - Sciatica, left side Plan: Assessment and Plan - Prescribed prednisone 40mg x 5 days to reduce inflammation and alleviate pain. Advised blood sugars will rise when taking. Discussed risks and benefits of taking prednisone. - Prescribed cyclobenzaprine as a muscle relaxant to aid in sleep and pain management. - Advised to use ice on the affected area for additional relief. - Instructed to monitor for any loss of bladder or bowel control and seek emergency care if it occurs. - Follow up with PCP if no improvement in pain after treatment. - Can start stretches for sciatic nerve pain once pain has improved. Patient was informed and verbally consented to the use of an ambient scribe for clinic note documentation during this visit. Medications: New prednisone 40 mg (2 x 20 mg) PO QAM 10 tabs 0RF Coding Level of Care Code Est Pt Level 3 (33842) Diagnoses Left sided sciatica M54.32
--- OUTSIDE RECORDS SUMMARY | 2025-05-06 14:52 | XMS_ITS | Clinical Summary ---
Author Organization [facility] Address [address] [place] [address] Care Team Providers Care Vocational Training Instructor Name Role Phone Solis Rockwell MD Primary Care Provider [phone] Allergies No known active allergies Medications Medication [...] age to complete this topic Care Teams Vocational Training Instructor Relationship Specialty Start Date End Date Solis Rockwell MD PCP - General Internal Medicine 11/30/17
== END 2025-05-06 14:22 | disposition home or self-care (01) ==
PROVIDERS: PCP Nurse Practitioner Family; Visit Provider Physician Assistant
DX: M54.32 Sciatica, left side (principal)

== ENCOUNTER → 2025-05-06 13:38 | Outpatient (BNVA) | payer OTHER, SELFPAY | PROVIDERS: PCP Nurse Practitioner Family; Visit Provider Physician Assistant | DX: M54.32 Sciatica, left side (principal); E11.9 Type 2 diabetes mellitus without complications | CPT/HCPCS: 99212 ==

== ENCOUNTER 2025-07-01 08:18 | Outpatient (REF) | payer OTHER, SELFPAY ==
--- NOTE | ~2025-07-01 | XR_ITS ---
EXAMINATION: XR HIP, LEFT CLINICAL INFORMATION: M16.12 - Unilateral primary osteoarthritis, left hip COMPARISON: None available. TECHNIQUE: Two views of the left hip. FINDINGS: Moderate-severe left hip arthritis. No acute fracture or dislocation. No suspicious bony lesion. No abnormal soft tissue calcification. XR/XR hip LT min 2V IMPRESSION: Moderate-severe left hip arthritis. Electronically signed by: Tristan Lawrence MD 07/01/2025 02:52 PM [facility]
== END 2025-07-01 08:19 | disposition home or self-care (01) ==
LOC: HO.XRAY 08:18
PROVIDERS: PCP Nurse Practitioner Family; Referring Provider Orthopaedic Surgery; Visit Provider Anesthesiology
DX: M16.12 Unilateral primary osteoarthritis, left hip (principal); E66.01 Morbid (severe) obesity due to excess calories; Z68.44 Body mass index [BMI] 60.0-69.9, adult
CPT/HCPCS: 73502; 99202

== ENCOUNTER 2025-07-01 08:18 | Outpatient (AMB) | payer OTHER, SELFPAY ==
[2025-07-01 08:25] VITALS: BP 183/99; PULSE 78; RESP 16; O2SAT 87; BMI 61.0
--- NOTE | 2025-07-01 08:25 | A.OFFVIS_ITS ---
Vital Signs 07/01/25 08:25 Height 5 ft 10 in Weight 425 lb BMI 61.0 BP 183/99 H Blood Pressure Location Rt radial Position Sitting Respiration 16 Pulse 78 Pulse Source Pulse Oximeter Pulse Oximetry (%) 87 L Oxygen Delivery Method Room Air Intake Visit Reasons: Sacrococcygeal disorders Workday Senior Associate Required: No Accompanied by: Self / Same As Patient Allergies Hunvwah-YND-CrF Reductase Inhibitor Adverse Reaction (Intermediate, Verified 07/01/25 08:31) Joint Pain HPI Comments Details: Andrea is very pleasant 64 years old gentleman who presents in my office today with pain on the posterior surface of the left lower extremity radiating down to the left lower extremity and into the groin. He reports that walking aggravate his pain. Walking upstairs and downstairs aggravates his pain. His pain started 6 weeks ago. Because of his pain he can not sleep normally can not do activities of daily living he is able to take care of himself but he can not function normally. He is unemployed and on permanent disability. He is morbidly obese. The pain is severe in the evening and less active in the morning. He describes his pain is term in terms of tissue damage as stabbing and lancinating sharp and lacerating pinching and crushing tugging and wrenching dull and heavy tiring and exhausting spreading and radiating. He never had any images of his spine or pelvis. He was prescribed prednisone to help his pain and it helped for short period of time. He was under care of orthopedic surgeon and under consideration of total hip replacement on the left however his severe morbid obesity was contraindication to perform at this time. Past medical history: Hypertension, diabetes, he is hemoglobin A1c 6.5 without any medications. As history of gout attack but does not report gout problems at this time he is taking lisinopril 20 mg once a day. Past surgical history he had eye surgery surgery on both knees with meniscus repair and arm repair on the left. He denies smoking cigarettes drinks 1 drink a week drinks regular coffee 2 to 3 times a week and denies recreational drugs. [facility] Medical History HTN (hypertension) Knee arthropathy Surgical History No pertinent past surgical history Social History Housing: House Are you a primary healthcare insurance sales agent to a significant other at home: No Do you presently have visiting nurse or other home services: No Patient Tobacco Use Status: Never used Tobacco e-Cigarette/Vaping Use: Never Used Second Hand Smoke Exposure: No service: No Current occupational status: retired and disabled Cognitive needs: No Hearing needs: No Vision needs: No Review of Systems Const All systems reviewed & are unremarkable except as noted in HPI and below ENT Reports Normal hearing present Neuro Reports Normal hearing present, Denies Abnormal speech present, Denies confusion and Denies Sensory deficit (Neuro) Psych Denies confusion Physical Exam Vital Signs: Last Vital Signs Pulse 78 07/01/25 08:25 Resp 16 07/01/25 08:25 BP 183/99 H 07/01/25 08:25 Pulse Ox 87 L 07/01/25 08:25 Oxygen Delivery Method Room Air 07/01/25 08:25 BMI result Body Mass Index 61.0 Const General: no acute distress; No confusion Nutritional Appearance: obese morbidly obese Orientation/consciousness: patient oriented x3 and No confusion Eyes General: appearance normal, both eyes and all related structures Pupils: Equal, round and reactive pupils present EOM: EOMs intact bilaterally Neck Neck: Yes full ROM Chest Chest palpation & inspection: normal inspection of the chest Resp Effort & Inspection: normal respiratory effort, able to speak in complete sentences, normal respiratory pattern, no audible wheezes and no cough Cardio Jugular venous distension: no JVD GI Inspection: Yes normal to inspection Back/Spine/Pelvis Other: SLR is negative bilaterally, Lasegue test is negative bilaterally, patient is able to stand on bilateral tiptoes in bilateral heels without difficulty, he is able to leave the 1st toe in separation from the rest of his toes from the ground. He denies any numbness in the bilateral lower extremities, on i nspection there is discoloration of the right lower leg with signs and symptoms of venous insufficiency, Justin test is equivocal bilaterally, Gaenslen test is negative bilaterally, lateral and medial hip rotation cause severe discomfort in the groin, in the back, and in the lateral thigh. Neuro General: patient oriented x3, gait normal and No confusion Cranial nerves: Yes CN's II-XII intact bilaterally, Yes Equal, round and reactive pupils present, Yes Normal hearing present and Yes Ability to bilaterally elevate shoulders present Speech: No Abnormal speech present Gait exam (Neuro): Normal gait present Motor exam (neuro): 5/5 motor strength present throughout Sensory Exam: No Sensory deficit (Neuro) Extrem General: No pedal edema Psych Speech and movement: Normal speech and movement present Affect: normal affect Attitude: cooperative Thought process: Normal thought process present Thought content: Normal thought content present Insight: Good insight present (Psych) Judgement: Good judgement present (Psych) Assessment & Plan Assessment & Plan (1) Osteoarthritis of left hip: Code(s): M16.12 - Unilateral primary osteoarthritis, left hip Category: Medical (2) Morbid (severe) obesity due to excess calories: Code(s): E66.01 - Morbid (severe) obesity due to excess calories Category: Medical Plan On the physical exam today my impression is that the patient is suffering from left hip osteoarthritis, congruent sacroiliitis on the left can not be excluded. I offered the patient to perform intra-articular left hip steroid injection, I explained to the patient that I offer this procedure to him with reservation because of his severe body mass and advanced arthritis. He has started physical therapy. We briefly discussed with the patient today possibility of weight loss. Obviously all of his medical problems related to extreme obesity his BMI is 61 kg per sq meter. I believe this patient needs gastric bypass but he is reluctant to go for this procedure I offered him referral to bariatric surgery but he refused. Orders: Orders XR hip LT min 2V Today M16.12 - Unilateral primary osteoarthritis, left hip PT Evaluation and Treatment Today M16.12 - Unilateral primary osteoarthritis, left hip Coding Level of Care Code New Pt Level 3 (97911) Diagnoses Osteoarthritis of left hip M16.12 Morbid (severe) obesity due to excess calories E66.01
--- OUTSIDE RECORDS SUMMARY | 2025-07-01 08:37 | XMS_ITS | Clinical Summary ---
Author Organization [facility] Address [address] [place] [address] Care Team Providers Care Airport Planner Name Role Phone Solis Rockwell MD Primary Care Provider [phone] Allergies No known active allergies Medications Medication [...] age to complete this topic Care Teams Airport Planner Relationship Specialty Start Date End Date Solis Rockwell MD PCP - General Internal Medicine 11/30/17
== END 2025-07-01 08:53 | disposition home or self-care (01) ==
PROVIDERS: PCP Nurse Practitioner Family; Referring Provider Orthopaedic Surgery; Visit Provider Anesthesiology
DX: M16.12 Unilateral primary osteoarthritis, left hip (principal); E66.01 Morbid (severe) obesity due to excess calories; Z68.44 Body mass index [BMI] 60.0-69.9, adult
CPT/HCPCS: 99203

== ENCOUNTER → 2025-07-01 09:32 | Outpatient (BNV) | payer OTHER, SELFPAY | PROVIDERS: PCP Nurse Practitioner Family; Referring Provider Orthopaedic Surgery; Visit Provider Radiology Diagnostic Ultrasound | DX: M16.12 Unilateral primary osteoarthritis, left hip (principal) | CPT/HCPCS: 73502 ==